=== PATIENT | female | born 1990 | race Caucasian/White ===

== ENCOUNTER 2021-12-10 14:00 | Outpatient (RCR) | payer MEDICAID, SELFPAY | END 2022-01-06 13:51 | disposition home or self-care (01) | LOC: HO.PT 14:00 | PROVIDERS: PCP Internal Medicine; Visit Provider Internal Medicine | DX: M54.16 Radiculopathy, lumbar region (principal) | CPT/HCPCS: 97110; 97112; 97161 ==

== ENCOUNTER 2022-01-13 14:58 | Outpatient (REF) | payer MEDICAID, SELFPAY ==
--- NOTE | ~2022-01-13 | MR_ITS ---
EXAMINATION: MR LUMBAR SPINE WITHOUT CONTRAST CLINICAL INFORMATION: 31-year-old with self-reported low back pain and right leg pain and numbness. Lumbar radiculopathy. COMPARISON: None TECHNIQUE: MRI of the lumbar spine was obtained using routine sequences without contrast. FINDINGS: CORONAL ALIGNMENT: Normal. SAGITTAL ALIGNMENT: Normal. LUMBOSACRAL JUNCTION: Normal. VERTEBRAL BODIES: Normal height. DISC SPACES AND ENDPLATES: [id number] disc space height loss at L5-S1 with disc desiccation, Schmorl's node along the inferior endplate of L5 and minor marginal endplate spurring. Remaining intervertebral disc space heights and signal are well maintained throughout the lumbar spine. SPINAL CANAL: No abnormal developmental findings. BONE MARROW: No significant marrow-replacing process or bone marrow edema. Type II degenerative marrow signal changes noted along the endplates at L5-S1. CONUS MEDULLARIS: Terminates at T12-L1. Morphology and signal is normal. INTRADURAL NERVE ROOTS: Within normal limits. L5-S1: Large broad-based central, slightly extruded disc herniation with minimal cephalad migration, with mass effect on the ventral thecal sac centrally and slightly to the right of midline with impingement on the traversing right S1 nerve root. There is associated moderate central spinal canal narrowing and [id number] right subarticular recess narrowing. No significant facet arthropathy. There is mild right-sided and [id number] left-sided neural foraminal stenosis without definite exiting neural impingement. The remaining lumbar intervertebral discs demonstrate normal disc contours without significant disc bulge or herniation. No significant facet arthrosis, canal or neural foraminal stenosis seen throughout the remainder of the lumbar spine. PARASPINAL/RETROPERITONEAL: The visualized paravertebral soft tissues appear unremarkable. MR/MR lumbar spine wo con IMPRESSION: 1. Discogenic degenerative changes at L5-S1 with a large central to right central extruded disc herniation, with impingement on the traversing right S1 nerve root and flattening of the ventral thecal sac asymmetric to the right with moderate central spinal canal narrowing and narrowing of the right subarticular zone. 2. Acjo-uj-xbjyyndg left and mild right-sided neural foraminal narrowing at L5-S1.
== END 2022-01-13 14:59 | disposition home or self-care (01) ==
LOC: HO.MRI 14:58
PROVIDERS: Visit Provider Internal Medicine
DX: M54.16 Radiculopathy, lumbar region (principal)
CPT/HCPCS: 72148

== ENCOUNTER 2022-01-31 15:57 | Emergency (ER) | payer MEDICAID, SELFPAY ==
[2022-01-31 16:20] VITALS: PULSE 106; RESP 18; TEMP 35.8; O2SAT 100; BMI 31.7
--- NOTE | 2022-01-31 22:29 | ED_ITS ---
HPI - General Adult General Chief complaint: Back Pain/Injury Stated complaint: abscess on face/R leg numbness Time Seen by Provider: 01/31/22 18:36 Source: patient Mode of arrival: ambulatory Limitations: no limitations History of Present Illness HPI narrative: 31-year-old female came in for evaluation of dental abscess and low back pain. 1. Dental abscess on the right upper gum, patient self opened the abscess and drained a on her own now is complaining of soreness of the right upper, no more discharge, no fever, no chills, no facial swelling, no eye pain or visual changes. 2. Patient also was diagnosed with lumbar radiculopathy with right lower extremities radiation, no urinary incontinence or stool incontinence, no loss of sensation or motor function to the lower extremities. Patient reported imp rovement with using short course of steroid in the past. Related Data Previous Rx's Medication Instructions Recorded clindamycin HCl 300 mg capsule 300 mg PO TID #20 caps 01/31/22 prednisone 20 mg tablet 20 mg PO BID #10 tabs 01/31/22 Allergies Allergy/AdvReac Type Severity Reaction Status Date / Time hydrocodone [From VICODIN] Allergy Severe INVOLUNTARY Verified 01/31/22 16:19 SPASMS aspirin Allergy Mild N/V Verified 01/31/22 16:19 Penicillins Allergy Mild HIVES Verified 01/31/22 16:19 citalopram [Celexa] Allergy Unknown Unknown Verified 01/31/22 16:19 penicillin V Allergy Unknown Unknown Verified 01/31/22 16:19 Penicillin Allergy Unknown Unknown Uncoded 01/31/22 16:19 Review of Systems Review of Systems: All other systems are reviewed and are negative Constitutional: Reports as per HPI and Reports no additional constitutional complaints Eyes: Reports as per HPI and Reports no additional eye complaints Reports system reviewed and no additional complaints, except as documented Cardiovascular: Reports as per HPI and Reports no additional cardiovascular complaints Respiratory: Reports as per HPI and Reports no additional respiratory complaints Gastrointestinal: Reports as per HPI and Reports no additional gastrointestinal complaints Genitourinary: Reports no additional female genitourinary complaints Musculoskeletal: Reports no additional musculoskeletal complaints Skin/Breast: Reports system reviewed and no additional complaints, except as docu Psychiatric: Reports no additional psychiatric complaints Endocrine: Reports no additional endocrine complaints Hematologic/Lymphatic: Reports no additional hematologic/lymphatic complaints Allergic/Immunologic: Reports no additional allergic/immunologic complaints Reports system reviewed and no additional complaints, except as documented and Reports Abnormal speech present [facility] Social History Social History (System 12/09/21 @ 11:50 by Leah Hendrix) Advance Directives: No Advance Directives Information Provided: Yes Physical Exam ED Vital Signs: Vital Signs - 24 hr 01/31/22 16:20 Temperature 96.5 F L Pulse Rate 106 H Respiratory Rate 18 Pulse Oximetry 100 Oxygen Delivery Method Room Air BMI result Body Mass Index 31.7 Vital signs have been reviewed as appeared to be correct. Blood pressure normal. Heart rate normal. Respiration rate normal. Temperature normal. O xygen saturation normal. Appearance: Alert. Oriented X3. No acute distress. Head: Normal external exam. Normocephalic. Atraumatic. No Sosa signs noted. No raccoon eyes noted Eyes: PERRLA. EOMI. Conjunctiva and sclera normal. Eyelids normal. ENT: TM's Normal. Pharynx normal. Uvula midline. Moist mucous membranes. No trismus noted. No drooling noted. No muffled voice noted. Neck: Normal inspection. Neck supple. FROM. No adenopathy. Thyroid Normal. No meningeal signs. No neck mass noted. CVS: Normal heart rate and rhythm. Heart sound normal. No murmurs noted. Pulses normal throughout. Respiratory: No respiratory distress. Painless inspiration. Breath sounds normal. No wheezes/rales/rhonchi noted. Chest nontender. No accessory muscle usage noted or decreased air movement noted. Abdomen: Soft and nontender. Bowel sounds normal in all 4 quadrants. No distention noted. No organomegaly noted. No visible injury noted. Back: No CVA tenderness. Full range of motion noted. Skin: Skin warm and dry. Normal skin color. Normal skin turgor. No rashes/lesions/lacerations noted. Extremities: No lower extremity edema. Extremities exhibit normal range of motion. Extremities nontender. Neuro: Oriented X 3. Cranial nerve exam: II-XII are grossly intact No motor deficit. No sensory deficit. Reflexes normal. Able to ambulate on both toes and heels, intact perianal sensation. Course Course Course Narrative: Assessment and plan. 31-year-old female with dental abscess that she self off vented this morning, no more drainage, improvement of the symptoms, patient is allergic to penicillins will start the patient on clindamycin and follow-up with the dentist. Patient with known lumbar radiculopathy patient reported improvement with using p.o. steroid prescribed by her PCP will start the patient on short course of prednisone. Discharge Plan Discharge Clinical Impression: Dental abscess, Lumbar radiculopathy, right Patient Disposition: Home, Self-Care Instructions: Dental Abscess (ED), Lumbar Radiculopathy (ED) Prescriptions: New clindamycin HCl 300 mg capsule 300 mg PO TID Qty: 20 0RF prednisone 20 mg tablet 20 mg PO BID Qty: 10 0RF Referrals: Amber Young MD [Primary Care Provider] - Stand Alone Forms: Work/School Release
[2022-01-31] MEDS: Clindamycin HCL 300 MG CAPSULE PO (22:48)
== END 2022-01-31 23:02 | disposition home or self-care (01) ==
PROVIDERS: Emergency Provider Emergency Medicine; PCP Internal Medicine
DX: K04.7 Periapical abscess without sinus (principal); M54.16 Radiculopathy, lumbar region; M54.50 Low back pain, unspecified
CPT/HCPCS: 99282; 99283

== ENCOUNTER 2022-03-10 15:58 | Outpatient (REF) | payer MEDICAID, SELFPAY ==
[2022-03-10 16:55] LABS: Estimated Average Glucose 321 mg/dL; Hemoglobin A1c % 12.8 %
[2022-03-10 17:21] LABS: Alanine Aminotransferase 37 U/L (0-31); Albumin Level 4.6 g/dL (3.5-5.0); Alkaline Phosphatase 82 U/L (39-117); Anion Gap 22 (12-20); Aspartate Amino Transferase 12 U/L (5-31); Bilirubin Total 0.6 mg/dL (0.0-1.0); Blood Urea Nitrogen 12 mg/dL (9-16); Calcium 10.5 mg/dL (8.4-10.2); Carbon Dioxide 23 mmol/L (22-29); Chloride 90 mmol/L (96-108); Estimated Glomerular Filt Rate 43; Potassium 4.5 mmol/L (3.3-5.1); Sodium 130 mmol/L (135-145); Total Protein 7.8 g/dL (6.5-8.0)
[2022-03-10 17:46] LABS: Glucose Random 799 mg/dL (60-115)
== END 2022-03-10 15:59 | disposition home or self-care (01) ==
LOC: HO.LAB 15:58
PROVIDERS: PCP Internal Medicine; Visit Provider Internal Medicine
DX: E11.65 Type 2 diabetes mellitus with hyperglycemia (principal); M51.16 Intervertebral disc disorders with radiculopathy, lumbar region
CPT/HCPCS: 36415; 80053; 83036

== ENCOUNTER 2022-03-10 19:25 | Emergency (ER) | payer MEDICAID, SELFPAY ==
[2022-03-10 20:27] VITALS: BP 138/78; PULSE 112; RESP 15; TEMP 36.1; O2SAT 97; BMI 31.8
[2022-03-10 20:45] LABS: MANUAL DIFF FLAG NO
[2022-03-10 20:47] LABS: Basophils Absolute Auto 0.1 X10*3/uL (0.0-0.2); Basophils Percent Auto 0.3 % (0-2); Hematocrit 40.8 % (37.0-47.0); Hemoglobin 13.7 g/dl (12.0-16.0); Imm Gran Abs Auto 0.44 X10*3/uL (0.00-0.03); Imm Gran Pct Auto 2.3 % (0.0-0.4); Lymphocytes Absolute Auto 2.4 X10*3/uL (1.2-4.9); Lymphocytes Percent Auto 12.3 % (20-40); Mean Corpuscular HGB Conc 33.6 g/dl (31.0-35.0); Mean Corpuscular Hemoglobin 27.4 pg (27.0-33.0); Mean Corpuscular Volume 81.6 fL (80.0-98.0); Mean Platelet Volume 11.4 fL (9.4-12.3); Monocytes Absolute Auto 1.4 X10*3/uL (0.1-1.2); Monocytes Percent Auto 7.1 % (2-11); Neutrophils Absolute Auto 15.1 x10*3/uL (2.0-8.3); Platelet Count 356 X10*3/uL (160-400); White Blood Count 19.3 X10*3/uL (4.8-10.8)
[2022-03-10 21:00] LABS: Appearance Urine CLEAR; Color Urine STRAW; Glucose Urine UA >=1000 MG/DL (NEG); Leukocyte Esterase Urine NEG (NEG); Nitrite Urine NEG (NEG); PH 5.5 (5.0-8.0); Specific Gravity - Urine <= 1.005 (1.005-1.025); UACC Culture Trigger NO; Urine Blood 1+ (NEG); Urine Ketones NEG (NEG); Urine Protein NEG (NEG-TRACE)
[2022-03-10 21:02] LABS: COVID-19 Test Negative (Negative)
[2022-03-10 21:05] LABS: Alanine Aminotransferase 38 U/L (0-31); Albumin Level 4.6 g/dL (3.5-5.0); Alkaline Phosphatase 80 U/L (39-117); Anion Gap 19 (12-20); Aspartate Amino Transferase 13 U/L (5-31); Bilirubin Total 0.4 mg/dL (0.0-1.0); Blood Urea Nitrogen 12 mg/dL (9-16); Calcium 9.8 mg/dL (8.4-10.2); Carbon Dioxide 25 mmol/L (22-29); Chloride 93 mmol/L (96-108); Estimated Glomerular Filt Rate 58; Glucose Random 521 mg/dL (60-115); Potassium 3.9 mmol/L (3.3-5.1); Sodium 133 mmol/L (135-145); Total Protein 7.8 g/dL (6.5-8.0)
--- NOTE | 2022-03-10 21:20 | PC.NURSE ---
Critical poc reported to this underwriter mortgage loan. Attempting to bring patient to room. Pt did not answer, Will attempt to call pt for a second time. Will notify provider.
[2022-03-10 21:23] LABS: Mucus Urine TRACE /LPF; Squamous Epithelial Cell Urine 1+ /LPF; WBC Urine 0-2 /HPF (0-4)
[2022-03-10 21:24] LABS: UPreg QC Valid YES; Urine Pregnancy NEGATIVE (NEGATIVE)
--- NOTE | 2022-03-10 21:25 | PC.NURSE ---
pt called multiple times with no reponse. pt was on the phone with her during triage and she understood that her labs were abnormal and that we need to get her Blood glucose under control. Left ER without alerting staff she would be leaving.
[2022-03-11 07:23] LABS: Estimated Average Glucose 315 mg/dL; Hemoglobin A1c % 12.6 %
[2022-03-11 07:25] LABS: Glucose, Whole Blood 484 mg/dL (60-115)
== END 2022-03-10 22:00 | disposition left against medical advice (07) ==
PROVIDERS: Emergency Medicine; Emergency Provider Emergency Medicine; PCP Internal Medicine
DX: E11.65 Type 2 diabetes mellitus with hyperglycemia (principal); M54.50 Low back pain, unspecified; Z20.822 Contact with and (suspected) exposure to COVID-19
CPT/HCPCS: 80053; 81001; 81003; 81025; 82947; 83036; 85025; 87635; 99282; 99283

== ENCOUNTER 2022-03-11 16:07 | Outpatient (REF) | payer MEDICAID, SELFPAY ==
[2022-03-11 16:56] LABS: Anion Gap 19 (12-20); Blood Urea Nitrogen 17 mg/dL (9-16); Calcium 9.6 mg/dL (8.4-10.2); Carbon Dioxide 27 mmol/L (22-29); Chloride 96 mmol/L (96-108); Estimated Glomerular Filt Rate > 60; Glucose Random 258 mg/dL (60-115); Potassium 3.7 mmol/L (3.3-5.1); Sodium 138 mmol/L (135-145)
== END 2022-03-11 16:08 | disposition home or self-care (01) ==
LOC: HO.LAB 16:07
PROVIDERS: PCP Internal Medicine; Visit Provider Internal Medicine
DX: E11.65 Type 2 diabetes mellitus with hyperglycemia (principal); N17.9 Acute kidney failure, unspecified
CPT/HCPCS: 36415; 80048

== ENCOUNTER 2022-03-13 02:20 | Observation (INO) | payer MEDICAID, SELFPAY ==
[2022-03-13] VITALS (15 sets, daily range): BP systolic 100–136; BP diastolic 52–80; PULSE 76–123; RESP 16–20; TEMP 36.1–37.3; O2SAT 94–99; BMI 31.8; BMI 31.7
--- NOTE | ~2022-03-13 | CT_ITS ---
EXAMINATION: CT ABDOMEN AND PELVIS WITHOUT CONTRAST CLINICAL INFORMATION: Right lower quadrant pain. COMPARISON: Abdominal ultrasound dated 09/12/2015. CT abdomen/pelvis dated 07/22/2011. TECHNIQUE: Multidetector volumetric imaging was performed from the superior aspect of the liver through the pubic symphysis. Sagittal and coronal reformatted images were obtained on the technologist's workstation. This CT examination was performed using dose optimization techniques as appropriate, variously including the following: *Automated exposure control *Adjustment of mA and/or kV according to patient size (this includes techniques or standardized protocols for targeted exams where dose is matched to indication/reason for exam; i.e. extremities or head) *Use of iterative reconstruction technique DLP: 707 mGy-cm FINDINGS: LUNG BASES: The visualized lung bases are unremarkable. LIVER, GALLBLADDER, AND BILIARY TREE: The liver is normal in size and shape. Parenchymal hypoattenuation consistent with steatosis. No focal hepatic lesion or biliary ductal dilatation is present. The gallbladder is unremarkable with no evidence of radiopaque gallstones, gallbladder wall thickening, or obvious pericholecystic inflammatory changes. PANCREAS: Unremarkable. SPLEEN: Unremarkable. ADRENAL GLANDS: Unremarkable. KIDNEYS AND URETERS: The kidneys are normal in size, shape, and attenuation. Right ureterovesicular junction stone measuring up to 0.8 x 0.6 cm and 1243 Hounsfield units. [id number]-[id number] right-sided hydroureteronephrosis with mild right perinephric stranding. No additional renal or ureteral stone. No left-sided hydronephrosis or hydroureter. BLADDER: Unremarkable. GASTROINTESTINAL TRACT: No bowel wall thickening or inflammatory change. No small or large bowel obstruction. Unremarkable appendix. PERITONEAL CAVITY: No intra-abdominal free air or free fluid. No intra-abdominal mass or organized fluid collection/abscess formation. ABDOMINAL WALL: No significant hernia is appreciated. LYMPH NODES: No significant lymphadenopathy. VASCULAR: Unremarkable. PELVIC VISCERA: The uterus and adnexa are unremarkable. OSSEOUS STRUCTURES: Unremarkable. CT/CT abdomen pelvis wo con IMPRESSION: 1. Obstructing right ureterovesicular junction stone measuring up to 0.8 cm with [id number]-[id number] right-sided hydroureteronephrosis and mild right perinephric stranding. 2. Hepatic steatosis. Fleischner guidelines were followed.
--- NOTE | ~2022-03-13 | FL_ITS ---
EXAMINATION: XR FLUOROSCOPY WITH IMAGES CLINICAL INFORMATION: Calculus COMPARISON: CT abdomen pelvis on 03/13/2022 TECHNIQUE: Fluoroscopy performed by Dr. Julius Maravilla. Fluoroscopy time: 0.2 minutes. Cumulative Dose: 5.51 mGy. Images: 2. FINDINGS: Cystoscopy was performed with retrograde access of the right ureter. A stent was placed. The proximal portion of the stent is not visualized. FL/FL guidance in OR IMPRESSION: Fluoroscopy provided for the urology department. Please see operative report for additional information.
[2022-03-13 02:53] LABS: Basophils Absolute Auto 0.1 X10*3/uL (0.0-0.2); Basophils Percent Auto 0.3 % (0-2); Eosinophils Absolute Auto 0.1 X10*3/uL (0.0-0.4); Eosinophils Percent Auto 0.5 % (0-4); Hematocrit 37.9 % (37.0-47.0); Hemoglobin 12.7 g/dl (12.0-16.0); Imm Gran Abs Auto 0.34 X10*3/uL (0.00-0.03); Imm Gran Pct Auto 2.2 % (0.0-0.4); Lymphocytes Absolute Auto 4.3 X10*3/uL (1.2-4.9); Lymphocytes Percent Auto 27.3 % (20-40); MANUAL DIFF FLAG SCAN; Mean Corpuscular HGB Conc 33.5 g/dl (31.0-35.0); Mean Corpuscular Hemoglobin 27.5 pg (27.0-33.0); Mean Corpuscular Volume 82.2 fL (80.0-98.0); Mean Platelet Volume 11.1 fL (9.4-12.3); Monocytes Absolute Auto 1.6 X10*3/uL (0.1-1.2); Monocytes Percent Auto 10.4 % (2-11); Neutrophils Absolute Auto 9.2 x10*3/uL (2.0-8.3); Neutrophils Percent Auto 59.3 % (45-73); Platelet Count 306 X10*3/uL (160-400); Red Blood Count 4.61 X10*6/uL (4.20-5.50); Red Cell Distribution Width 13.9 % (11.0-16.0); SCAN SMEAR FLAG 1; White Blood Count 15.6 X10*3/uL (4.8-10.8)
[2022-03-13 03:06] LABS: Anion Gap 14 (12-20); Blood Urea Nitrogen 13 mg/dL (9-16); Calcium 9.3 mg/dL (8.4-10.2); Carbon Dioxide 29 mmol/L (22-29); Chloride 101 mmol/L (96-108); Estimated Glomerular Filt Rate > 60; Glucose Random 152 mg/dL (60-115); Potassium 3.6 mmol/L (3.3-5.1); Sodium 140 mmol/L (135-145)
[2022-03-13 03:12] LABS: Appearance Urine HAZY; Color Urine YELLOW; Glucose Urine UA NEG (NEG); Leukocyte Esterase Urine NEG (NEG); Nitrite Urine NEG (NEG); Specific Gravity - Urine >= 1.030 (1.005-1.025); UACC Culture Trigger NO; UPreg QC Valid YES; Urine Blood 3+ (NEG); Urine Ketones NEG (NEG); Urine Pregnancy NEGATIVE (NEGATIVE); Urine Protein NEG (NEG-TRACE)
[2022-03-13 03:14] LABS: SLIDE REVIEW VERIFIED
[2022-03-13 03:18] LABS: Bacteria Urine 2+ /LPF; Mucus Urine 1+ /LPF; Squamous Epithelial Cell Urine 4+ /LPF
[2022-03-13 07:01] LABS: Alanine Aminotransferase 39 U/L (0-31); Albumin Level 3.9 g/dL (3.5-5.0); Alkaline Phosphatase 58 U/L (39-117); Aspartate Amino Transferase 25 U/L (5-31); Bilirubin Direct 0.2 mg/dL (0.0-0.5); Bilirubin Total 0.5 mg/dL (0.0-1.0); Lipase 43 U/L (8-78); Total Protein 6.4 g/dL (6.5-8.0)
--- NOTE | 2022-03-13 07:06 | ED_ITS ---
HPI - Abdominal Pain General Chief Complaint: Abdominal Pain Stated Complaint: abd pain, hard time walking, vomiting - diabetic Time Seen by Provider: 03/13/22 06:42 Source: patient Mode of arrival: ambulatory History of Present Illness HPI narrative: 31-year-old female with recently diagnosed diabetes and a history of kidney stones states that she began having right lower quadrant pain yesterday that was associated with nausea/vomiting/diarrhea at approximately 21:30. Patient also reports dysuria as well as subjective fevers and chills. Related Data Previous Rx's Medication Instructions Recorded prednisone 20 mg tablet 20 mg PO BID #10 tabs 01/31/22 Allergies Allergy/AdvReac Type Severity Reaction Status Date / Time hydrocodone [From VICODIN] Allergy Severe INVOLUNTARY Verified 01/31/22 16:19 SPASMS aspirin Allergy Mild N/V Verified 01/31/22 16:19 Penicillins Allergy Mild HIVES Verified 01/31/22 16:19 citalopram [Celexa] Allergy Unknown Unknown Verified 01/31/22 16:19 penicillin V Allergy Unknown Unknown Verified 01/31/22 16:19 Penicillin Allergy Unknown Unknown Uncoded 01/31/22 16:19 Review of Systems Review of Systems Pertinent positives and negatives as stated in HPI 10 point review of systems otherwise negative. PMFSH Past Medical History Source: nursing notes reviewed Social History Social History Advance Directives: No Advance Directives Information Provided: No Physical Exam ED Vital Signs: Vital Signs - 24 hr 03/13/22 02:35 03/13/22 04:42 03/13/22 08:15 Temperature 99.2 F 99.1 F Pulse Rate 123 H 122 H 114 H Respiratory Rate 16 18 17 Blood Pressure 115/78 127/73 120/67 Pulse Oximetry 98 95 97 Oxygen Delivery Method Room Air Room Air Room Air BMI result Body Mass Index 31.8 VITAL SIGNS: Reviewed. GENERAL: Well developed, well nourished, in no acute distress, resting in the gurney sleeping.. HEAD: Normocephalic/atraumatic EYES: PERRLA, EOMI EARS: Ext canals without abnormality OROPHARYNX: no oral lesions noted, posterior pharynx clear LUNGS: Normal breath sounds. No adventitious sounds or accessory muscle use. SpO2<98> CARDIOVASCULAR: Regular rate and rhythm without noted murmurs ABDOMEN: Soft, mild tenderness at the right flank/right lower quadrant without rebound, non-distended with bowel sounds. MUSCULOSKELETAL: No tenderness, deformities, or effusions noted on gross inspection. EXTREMITIES: No cyanosis, clubbing or edema. SKIN: Inspection of the skin reveals no rashes NEUROLOGIC: Alert and oriented x 4. Strength and sensation to light touch were grossly intact x 4. Course Course Course Narrative: 0633: 31-year-old female with history and clinical presentation of possible renal colic, appendicitis, UTI, ectopic. 0815: I suspect infection, and on review of all investigations there is a noted 0.8 cm stone at the right UVJ with right perinephric stranding and moderate to severe hydronephrosis. 0833: I discussed the case with Dr. Maravilla who will take patient to the OR this afternoon and he will see her at mid day. The plan and results were discussed with patient at bedside, lactic acid/blood cultures/antibiotics were ordered, patient was made NPO, IV fluids and pain medication were ordered. MDM - Abdominal Pain Lab Data Result diagrams: 03/13/22 02:46 03/13/22 02:46 Labs: Lab Results 03/13/22 03/13/22 03/13/22 Range/Units 02:46 02:46 02:57 WBC 15.6 H (4.8-10.8) X10*3/uL RBC 4.61 (4.20-5.50) X10*6/uL Hgb 12.7 (12.0-16.0) g/dl Hct 37.9 (37.0-47.0) % MCV 82.2 (80.0-98.0) fL MCH 27.5 (27.0-33.0) pg MCHC 33.5 (31.0-35.0) g/dl RDW 13.9 (11.0-16.0) % Plt Count 306 (160-400) X10*3/uL MPV 11.1 (9.4-12.3) fL Immature Gran % (Auto) 2.2 H (0.0-0.4) % Neut % (Auto) 59.3 (45-73) % Lymph % (Auto) 27.3 (20-40) % [place] % (Auto) 10.4 (2-11) % Eos % (Auto) 0.5 (0-4) % Baso % (Auto) 0.3 (0-2) % Lymph # (Auto) 4.3 (1.2-4.9) X10*3/uL [place] # (Auto) 1.6 H (0.1-1.2) X10*3/uL Eos # (Auto) 0.1 (0.0-0.4) X10*3/uL Baso # (Auto) 0.1 (0.0-0.2) X10*3/uL Abs Immat Gran (auto) 0.34 H (0.00-0.03) X10*3/uL Absolute Neuts (auto) 9.2 H (2.0-8.3) x10*3/uL Absolute Nucleated RBC 0.000 (0.0-0.012) X10*3/uL Nucleated RBC % (auto) 0.0 (0.0-0.2) /100WBC Smear Tech's Comments VERIFIED Sodium 140 (135-145) mmol/L Potassium 3.6 (3.3-5.1) mmol/L Chloride 101 (96-108) mmol/L Carbon Dioxide 29 (22-29) mmol/L Anion Gap 14 (12-20) BUN 13 (9-16) mg/dL Creatinine 0.81 (0.5-1.4) mg/dL Estim Creat Clear Calc 100.0 Estimated GFR > 60 Random Glucose 152 H (60-115) mg/dL Calcium 9.3 (8.4-10.2) mg/dL Total Bilirubin 0.5 (0.0-1.0) mg/dL Direct Bilirubin 0.2 (0.0-0.5) mg/dL AST 25 D (5-31) U/L ALT 39 H (0-31) U/L Alkaline Phosphatase 58 D (39-117) U/L Total Protein 6.4 L (6.5-8.0) g/dL Albumin 3.9 (3.5-5.0) g/dL Lipase 43 (8-78) U/L Urine Color YELLOW Urine Appearance HAZY Urine pH 6.0 (5.0-8.0) Ur Specific [place] >= 1.030 H (1.005-1.025) Urine Protein NEG (NEG-TRACE) MG/DL Urine Glucose (UA) NEG (NEG) MG/DL Urine Ketones NEG (NEG) MG/DL Urine Blood 3+ H (NEG) Urine Nitrite NEG (NEG) Ur Leukocyte Esterase NEG (NEG) Urine RBC 15-29 H (0) /HPF Urine WBC 1-4 (0-4) /HPF Ur Squamous Epith Cells 4+ /LPF Urine Bacteria 2+ /LPF Urine Mucus 1+ /LPF Urine Yeast 1+ /HPF Urine Test (NEGATIVE) 03/13/22 Range/Units 02:57 WBC (4.8-10.8) X10*3/uL RBC (4.20-5.50) X10*6/uL Hgb (12.0-16.0) g/dl Hct (37.0-47.0) % MCV (80.0-98.0) fL MCH (27.0-33.0) pg MCHC (31.0-35.0) g/dl RDW (11.0-16.0) % Plt Count (160-400) X10*3/uL MPV (9.4-12.3) fL Immature Gran % (Auto) (0.0-0.4) % Neut % (Auto) (45-73) % Lymph % (Auto) (20-40) % [place] % (Auto) (2-11) % Eos % (Auto) (0-4) % Baso % (Auto) (0-2) % Lymph # (Auto) (1.2-4.9) X10*3/uL [place] # (Auto) (0.1-1.2) X10*3/uL Eos # (Auto) (0.0-0.4) X10*3/uL Baso # (Auto) (0.0-0.2) X10*3/uL Abs Immat Gran (auto) (0.00-0.03) X10*3/uL Absolute Neuts (auto) (2.0-8.3) x10*3/uL Absolute Nucleated RBC (0.0-0.012) X10*3/uL Nucleated RBC % (auto) (0.0-0.2) /100WBC Smear Tech's Comments Sodium (135-145) mmol/L Potassium (3.3-5.1) mmol/L Chloride (96-108) mmol/L Carbon Dioxide (22-29) mmol/L Anion Gap (12-20) BUN (9-16) mg/dL Creatinine (0.5-1.4) mg/dL Estim Creat Clear Calc Estimated GFR Random Glucose (60-115) mg/dL Calcium (8.4-10.2) mg/dL Total Bilirubin (0.0-1.0) mg/dL Direct Bilirubin (0.0-0.5) mg/dL AST (5-31) U/L ALT (0-31) U/L Alkaline Phosphatase (39-117) U/L Total Protein (6.5-8.0) g/dL Albumin (3.5-5.0) g/dL Lipase (8-78) U/L Urine Color Urine Appearance Urine pH (5.0-8.0) Ur Specific [place] (1.005-1.025) Urine Protein (NEG-TRACE) MG/DL Urine Glucose (UA) (NEG) MG/DL Urine Ketones (NEG) MG/DL Urine Blood (NEG) Urine Nitrite (NEG) Ur Leukocyte Esterase (NEG) Urine RBC (0) /HPF Urine WBC (0-4) /HPF Ur Squamous Epith Cells /LPF Urine Bacteria /LPF Urine Mucus /LPF Urine Yeast /HPF Urine Test NEGATIVE (NEGATIVE) Discharge Plan Discharge Clinical Impression: Renal colic, Ureterolithiasis, Obstructed, uropathy Patient Disposition: Admitted As Inpatient Prescriptions: No Action prednisone 20 mg tablet 20 mg PO BID Qty: 10 0RF
[2022-03-13] MEDS: Ketorolac Tromethamine 30 MG/ML VIAL 15 MG IVPUSH (09:07)
[2022-03-13] MEDS: ondansetron HCL 4 MG/2 ML VIAL IVPUSH (09:07)
[2022-03-13] MEDS: 0.9 % Sodium Chloride 1,000 ML 999 ML IV (09:09)
--- NOTE | 2022-03-13 09:40 | PHA.MEDREC ---
Pharmacy Consult ? Medication Reconciliation Pharmacy has completed the medication reconciliation. Patient reports using Lantus 40 units at bedtime, however pharmacy claims the dose is 20 units at bedtime. Patient also has claims for picking up meds (calcium, citalopram, flexeril, discofenac, duloxetine) recently, however did not attest to taking them.
[2022-03-13 09:57] LABS: Lactic Acid 1.1 mmol/L (0.5-2.0)
[2022-03-13] MEDS: cefTRIAXone sodium 1 GM in 0.9 % Sodium Chloride 50 ML IV (10:34)
--- NOTE | 2022-03-13 10:36 | PC.NURSE ---
nad, resting w eyes closed. no n/v. flank pain relieved, still has chronic back pain, aware npo and of care plan
--- NOTE | 2022-03-13 14:14 | P.HPHOSP_ITS ---
History of Present Illness Date of Service: 03/13/22 Attending physician on admission: Mannie Rosario Chief Complaint: flank pain this is a 31-year-old female recently diagnosed with diabetes who presents to the emergency department with flank pain. She initially had polyuria and was seen by her primary care physician. Her blood sugar was elevated, hemoglobin A1c was above 12 and she was diagnosed with diabetes and started on Lantus. She began having right-sided flank pain and right-sided abdominal pain 2 days ago associated with dysuria. She denies any nausea, vomiting, fever, chills. Today her pain worsened and she presented to the emergency department for evaluation. Lab work was significant for leukocytosis of 15.6. She has remained afebrile. She underwent CT scan of the abdomen which showed an 8 mm obstructing stone on the right side. The emergency department provider discussed the case with Urology who recommended admission to the medical service. He plans to take her to the OR for intervention this afternoon. Review of Systems Review of Systems: Yes all other systems are reviewed and are negative Constitutional: Constitutional: Denies chills and Denies fever(s) Cardiovascular: Cardiovascular: Denies chest pain Gastrointestinal: Gastrointestinal: Reports abdominal pain, Denies nausea and Denies vomiting [facility] Medical History (Updated 03/13/22 @ 14:18 by RAIZA Dean) Diabetes Pertinent family history: no history of CAD, stroke, cancer as far she knows Surgical History (Updated 03/13/22 @ 14:18 by RAIZA Dean) H/O abdominoplasty H/O breast augmentation Social History (Updated 03/13/22 @ 14:19 by RAIZA Dean) Alcohol intake: current Alcohol intake frequency: holidays/special occasions only Patient Tobacco Use Status: Never used Tobacco Use of substances other than those prescribed or required for medical reasons: No Advance Directives: No Advance Directives Information Provided: No Meds Allergies Allergy/AdvReac Type Severity Reaction Status Date / Time hydrocodone [From VICODIN] Allergy Severe INVOLUNTARY Verified 01/31/22 16:19 SPASMS aspirin Allergy Mild N/V Verified 01/31/22 16:19 Penicillins Allergy Mild HIVES Verified 01/31/22 16:19 citalopram [Celexa] Allergy Unknown Unknown Verified 01/31/22 16:19 penicillin V Allergy Unknown Unknown Verified 01/31/22 16:19 Penicillin Allergy Unknown Unknown Uncoded 01/31/22 16:19 Active Medications: Current Medications Acetaminophen (Acetaminophen 325 Mg Tablet) 650 mg PO Q6H PRN PRN Reason: Pain, Mild (Pain Scale 1-3) Dextrose (Dextrose 50 % 25 Gm/50 Ml Syringe) 25 gm IVPUSH Q15M PRN; Protocol PRN Reason: per Hypoglycemia Standing Ord. Glucose (Glucose Gel 15 Gm Gel..Gram.) 15 gm PO Q15M PRN; Protocol PRN Reason: per Hypoglycemia Standing Ord. Ceftriaxone Sodium 1 gm/ (Sodium Chloride) 50 mls @ 100 mls/hr IV Q24H [facility] Insulin Glargine (Insulin Glargine,Hum.Rec.Anlog 100 Unit/Ml 10 Ml Vial) 40 unit SUBCUT BEDTIME [facility] Insulin Human Lispro (Insulin Lispro 100 Unit/Ml 3 Ml Vial) 0 unit SUBCUT QIDACHS [facility]; Protocol Ketorolac Tromethamine (Ketorolac Tromethamine 30 Mg/Ml Vial) 15 mg IVPUSH Q6H PRN PRN Reason: Pain, Mild (Pain Scale 1-3) Stop: 03/15/22 14:06 Omeprazole (Omeprazole 20 Mg Capsule.Dr) 20 mg PO DAILY@0630 [facility] Ondansetron HCl (Ondansetron Hcl 4 Mg/2 Ml Vial) 4 mg IVPUSH Q8H PRN PRN Reason: Nausea and Vomiting Pharmacy Consult (Consult Rx Perform Med Rec) 1 each MISCELLANE ONCE PRN PRN Reason: Consult order Sodium Chloride (0.9 % Sodium Chloride Flush 3 Ml Syringe) 3 ml IVFLUSH QSHIFT [facility] Trazodone HCl (Trazodone Hcl 50 Mg Tablet) 50 mg PO BEDTIME [facility] Home Medications Medication Instructions Recorded Confirmed Last Taken Type acetaminophen 325 mg tablet 650 mg PO Q6H PRN Pain 03/13/22 03/13/22 Unknown History (Tylenol) ibuprofen 400 mg tablet 400 mg PO Q6H PRN Pain 03/13/22 03/13/22 Unknown History insulin glargine 100 unit/mL (3 40 unit subcut BEDTIME 03/13/22 03/13/22 Unknown History mL) subcutaneous pen (Lantus Solostar U-100 Insulin) insulin lispro 100 unit/mL 10 unit subcut TID 03/13/22 03/13/22 03/12/22 History subcutaneous pen omeprazole 20 mg capsule,delayed 1 cap PO DAILY@0630 03/13/22 03/13/22 03/12/22 History release oxycodone 5 mg tablet 1 tab PO QID PRN pain 03/13/22 03/13/22 Unknown History trazodone 50 mg tablet 1 tab PO BEDTIME 03/13/22 03/13/22 Unknown History Physical Exam Vital Signs and Narrative: Vital Signs: Last Vital Signs Temp 98.7 F 03/13/22 11:28 Pulse 93 03/13/22 11:28 Resp 16 03/13/22 11:28 BP 101/64 03/13/22 11:28 Pulse Ox 95 03/13/22 11:28 O2 Del Method 03/13/22 11:28 BMI result Body Mass Index 31.8 Const: General: cooperative, comfortable, no acute distress, alert and awake Nutritional Appearance: overweight Orientation/consciousness: patient oriented x3 Resp: Effort & Inspection: normal respiratory effort and able to speak in complete sentences Auscultation: clear to auscultation bilaterally Cardio: Rate: regular rate Heart sounds: S1 normal heart sound present and S2 normal heart sound present GI: Inspection: No distended Palpation (GI): Soft to palpation and nontender : General: Yes no CVA tenderness Back/Spine/Pelvis: Back: no CVA tenderness Neuro: General: patient oriented x3 Extrem: General: Yes no pedal edema Results Labs CBC and Chem 7: 03/13/22 02:46 03/13/22 02:46 Labs: Laboratory Results - last 24 hr 03/13/22 03/13/22 03/13/22 02:46 02:46 02:57 MCV 82.2 MCH 27.5 MCHC 33.5 RDW 13.9 Plt Count 306 MPV 11.1 Immature Gran % (Auto) 2.2 H Neut % (Auto) 59.3 Lymph % (Auto) 27.3 [place] % (Auto) 10.4 Eos % (Auto) 0.5 Baso % (Auto) 0.3 Lymph # (Auto) 4.3 [place] # (Auto) 1.6 H Eos # (Auto) 0.1 Baso # (Auto) 0.1 Abs Immat Gran (auto) 0.34 H Absolute Neuts (auto) 9.2 H Absolute Nucleated RBC 0.000 Nucleated RBC % (auto) 0.0 Smear Tech's Comments VERIFIED Anion Gap 14 Estim Creat Clear Calc 100.0 Estimated GFR > 60 Random Glucose 152 H Lactic Acid Calcium 9.3 Total Bilirubin 0.5 Direct Bilirubin 0.2 AST 25 D ALT 39 H Alkaline Phosphatase 58 D Total Protein 6.4 L Albumin 3.9 Lipase 43 Urine Color YELLOW Urine Appearance HAZY Urine pH 6.0 Ur Specific [place] >= 1.030 H Urine Protein NEG Urine Glucose (UA) NEG Urine Ketones NEG Urine Blood 3+ H Urine Nitrite NEG Ur Leukocyte Esterase NEG Urine RBC 15-29 H Urine WBC 1-4 Ur Squamous Epith Cells 4+ Urine Bacteria 2+ Urine Mucus 1+ Urine Yeast 1+ Urine Test 03/13/22 03/13/22 02:57 09:37 MCV MCH MCHC RDW Plt Count MPV Immature Gran % (Auto) Neut % (Auto) Lymph % (Auto) [place] % (Auto) Eos % (Auto) Baso % (Auto) Lymph # (Auto) [place] # (Auto) Eos # (Auto) Baso # (Auto) Abs Immat Gran (auto) Absolute Neuts (auto) Absolute Nucleated RBC Nucleated RBC % (auto) Smear Tech's Comments Anion Gap Estim Creat Clear Calc Estimated GFR Random Glucose Lactic Acid 1.1 Calcium Total Bilirubin Direct Bilirubin AST ALT Alkaline Phosphatase Total Protein Albumin Lipase Urine Color Urine Appearance Urine pH Ur Specific [place] Urine Protein Urine Glucose (UA) Urine Ketones Urine Blood Urine Nitrite Ur Leukocyte Esterase Urine RBC Urine WBC Ur Squamous Epith Cells Urine Bacteria Urine Mucus Urine Yeast Urine Test NEGATIVE Imaging Radiologist's Impressions: Impressions Abdomen/Pelvis CT 03/13/22 07:39 IMPRESSION: 1. Obstructing right ureterovesicular junction stone measuring up to 0.8 cm with [id number] right-sided hydroureteronephrosis and mild right perinephric stranding. 2. Hepatic steatosis. Fleischner guidelines were followed. Assessment and Plan (1) Obstructed, uropathy: Status: Acute Plan this is a 31-year-old female, recently diagnosed with diabetes who presents the emergency department with right flank pain found to have right obstructing stone Obstructive uropathy with right-sided obstructing stone Seen by Urology, plan for OR this afternoon Started on IV ceftriaxone in the ED, will continue - pain control - follow-up urine culture recently diagnosed type 2 diabetes Hba1c >12 - SSI, POC -Continue home Lantus DVT prophylaxis-early ambulation, mechanical devices Code status -full code Attending-Dr. Rosario Quality Stroke Does the patient have a stroke diagnosis?: No VTE Prior VTE?: No VTE Risk Level:: Medical - moderate - high VTE Device Contraindication: N/A - Device Ordered VTE Drug Contraindication: Treatment Not Indicated
--- NOTE | 2022-03-13 16:05 | HO.ANESPROP2 ---
[facility] Active Problems Active Problems: All Active Problems (Updated 03/13/22 @ 14:18 by RAIZA Dean) Renal colic (Acute) Ureterolithiasis (Acute) Obstructed, uropathy (Acute) Past Medical History Medical History Diabetes Functional capacity: independent ambulation Patient : No Family History Family history of problems with anesthesia: No Surgical History Surgical History (Updated 03/13/22 @ 14:18 by RAIZA Dean) H/O abdominoplasty H/O breast augmentation History of Problems with Anesthesia: No Social History Social History Alcohol intake: current Alcohol intake frequency: holidays/special occasions only Patient Tobacco Use Status: Never used Tobacco Meds Allergies Allergy/AdvReac Type Severity Reaction Status Date / Time hydrocodone [From VICODIN] Allergy Severe INVOLUNTARY Verified 01/31/22 16:19 SPASMS aspirin Allergy Mild N/V Verified 01/31/22 16:19 Penicillins Allergy Mild HIVES Verified 01/31/22 16:19 citalopram [Celexa] Allergy Unknown Unknown Verified 01/31/22 16:19 penicillin V Allergy Unknown Unknown Verified 01/31/22 16:19 Penicillin Allergy Unknown Unknown Uncoded 01/31/22 16:19 Active Medications: Current Medications Acetaminophen (Acetaminophen 325 Mg Tablet) 650 mg PO Q6H PRN PRN Reason: Pain, Mild (Pain Scale 1-3) Dextrose (Dextrose 50 % 25 Gm/50 Ml Syringe) 25 gm IVPUSH Q15M PRN; Protocol PRN Reason: per Hypoglycemia Standing Ord. Glucose (Glucose Gel 15 Gm Gel..Gram.) 15 gm PO Q15M PRN; Protocol PRN Reason: per Hypoglycemia Standing Ord. Ceftriaxone Sodium 1 gm/ (Sodium Chloride) 50 mls @ 100 mls/hr IV Q24H [facility] Insulin Glargine (Insulin Glargine,Hum.Rec.Anlog 100 Unit/Ml 10 Ml Vial) 40 unit SUBCUT BEDTIME [facility] Insulin Human Lispro (Insulin Lispro 100 Unit/Ml 3 Ml Vial) 0 unit SUBCUT QIDACHS [facility]; Protocol Ketorolac Tromethamine (Ketorolac Tromethamine 30 Mg/Ml Vial) 15 mg IVPUSH Q6H PRN PRN Reason: Pain, Mild (Pain Scale 1-3) Stop: 03/15/22 14:06 Omeprazole (Omeprazole 20 Mg Capsule.Dr) 20 mg PO DAILY@0630 [facility] Ondansetron HCl (Ondansetron Hcl 4 Mg/2 Ml Vial) 4 mg IVPUSH Q8H PRN PRN Reason: Nausea and Vomiting Pharmacy Consult (Consult Rx Perform Med Rec) 1 each MISCELLANE ONCE PRN PRN Reason: Consult order Sodium Chloride (0.9 % Sodium Chloride Flush 3 Ml Syringe) 3 ml IVFLUSH QSHIFT [facility] Trazodone HCl (Trazodone Hcl 50 Mg Tablet) 50 mg PO BEDTIME [facility] Home Medications Medication Instructions Recorded Confirmed Last Taken Type acetaminophen 325 mg tablet 650 mg PO Q6H PRN Pain 03/13/22 03/13/22 Unknown History (Tylenol) ibuprofen 400 mg tablet 400 mg PO Q6H PRN Pain 03/13/22 03/13/22 Unknown History insulin glargine 100 unit/mL (3 40 unit subcut BEDTIME 03/13/22 03/13/22 Unknown History mL) subcutaneous pen (Lantus Solostar U-100 Insulin) insulin lispro 100 unit/mL 10 unit subcut TID 03/13/22 03/13/22 03/12/22 History subcutaneous pen omeprazole 20 mg capsule,delayed 1 cap PO DAILY@0630 03/13/22 03/13/22 03/12/22 History release oxycodone 5 mg tablet 1 tab PO QID PRN pain 03/13/22 03/13/22 Unknown History trazodone 50 mg tablet 1 tab PO BEDTIME 03/13/22 03/13/22 Unknown History Exam Exam Date and Time: March 13, 2022 1605 Height,Weight and Vital Signs: Height 5 ft 3 in Weight 81.647 kg Last Vital Signs Temp 98.7 F 03/13/22 11:28 Pulse 93 03/13/22 11:28 Resp 16 03/13/22 11:28 BP 101/64 03/13/22 11:28 Pulse Ox 95 03/13/22 11:28 O2 Del Method 03/13/22 11:28 Pertinent Lab Results Pertinent Lab Results: Laboratory Tests 03/13/22 03/13/22 03/13/22 02:46 02:46 02:57 WBC 15.6 H RBC 4.61 Hgb 12.7 Hct 37.9 MCV 82.2 MCH 27.5 MCHC 33.5 RDW 13.9 Plt Count 306 MPV 11.1 Immature Gran % (Auto) 2.2 H Neut % (Auto) 59.3 Lymph % (Auto) 27.3 [place] % (Auto) 10.4 Eos % (Auto) 0.5 Baso % (Auto) 0.3 Lymph # (Auto) 4.3 [place] # (Auto) 1.6 H Eos # (Auto) 0.1 Baso # (Auto) 0.1 Abs Immat Gran (auto) 0.34 H Absolute Neuts (auto) 9.2 H Absolute Nucleated RBC 0.000 Nucleated RBC % (auto) 0.0 Smear Tech's Comments VERIFIED Sodium 140 Potassium 3.6 Chloride 101 Carbon Dioxide 29 Anion Gap 14 BUN 13 Creatinine 0.81 Estim Creat Clear Calc 100.0 Estimated GFR > 60 Random Glucose 152 H Lactic Acid Calcium 9.3 Total Bilirubin 0.5 Direct Bilirubin 0.2 AST 25 D ALT 39 H Alkaline Phosphatase 58 D Total Protein 6.4 L Albumin 3.9 Lipase 43 Urine Color YELLOW Urine Appearance HAZY Urine pH 6.0 Ur Specific [place] >= 1.030 H Urine Protein NEG Urine Glucose (UA) NEG Urine Ketones NEG Urine Blood 3+ H Urine Nitrite NEG Ur Leukocyte Esterase NEG Urine RBC 15-29 H Urine WBC 1-4 Ur Squamous Epith Cells 4+ Urine Bacteria 2+ Urine Mucus 1+ Urine Yeast 1+ Urine Test 03/13/22 03/13/22 02:57 09:37 WBC RBC Hgb Hct MCV MCH MCHC RDW Plt Count MPV Immature Gran % (Auto) Neut % (Auto) Lymph % (Auto) [place] % (Auto) Eos % (Auto) Baso % (Auto) Lymph # (Auto) [place] # (Auto) Eos # (Auto) Baso # (Auto) Abs Immat Gran (auto) Absolute Neuts (auto) Absolute Nucleated RBC Nucleated RBC % (auto) Smear Tech's Comments Sodium Potassium Chloride Carbon Dioxide Anion Gap BUN Creatinine Estim Creat Clear Calc Estimated GFR Random Glucose Lactic Acid 1.1 Calcium Total Bilirubin Direct Bilirubin AST ALT Alkaline Phosphatase Total Protein Albumin Lipase Urine Color Urine Appearance Urine pH Ur Specific [place] Urine Protein Urine Glucose (UA) Urine Ketones Urine Blood Urine Nitrite Ur Leukocyte Esterase Urine RBC Urine WBC Ur Squamous Epith Cells Urine Bacteria Urine Mucus Urine Yeast Urine Test NEGATIVE Airway Mallampati Class: II TM Dist: >3cm Neck ROM: Full Heart: RRR Lungs: CTA Assessment and Plan Final Anesthetic Review Family History of Problems with Anesthesia: No History of Problems with Anesthesia: No ASA Class: II and Emergency Final Preanesthetic Review: Meds/Allgs Chart Reviewed, Consent Obtained/Reviewed and Anes Risks/Benef Reviewed Patient Risk: Low Procedure Risk: Low Anesthetic Plan Anesthetic Plan: GA Disposition: Standard PACU
[2022-03-13 16:10] LABS: Glucose, Whole Blood 109 mg/dL (60-115)
--- NOTE | 2022-03-13 16:15 | PM.UROCN ---
History of Present Illness Consult details Consult date: 03/13/22 Narrative: Consulting complaint right distal ureteric stone Jose F presents with 2 day history of right-sided flank pain So she aided nausea but no vomiting Recent diagnosis is diabetic with HbA1c 12.6 WBC today 15.6, creatinine 0.8 Sugars running in the 500s Has stabilized with IV pain control and hydration She has previously had stones and has required lithotripsy in the past 2012 and 2013 right ESWL Recommend intervention with cystoscopy, right retrograde, right ureteroscopy with laser lithotripsy and stent placement Review of Systems Constitutional: Constitutional: Reports as per HPI and Reports no additional constitutional complaints Cardiovascular: Cardiovascular: Reports as per HPI and Reports no additional cardiovascular complaints Respiratory: Respiratory: Reports as per HPI and Reports no additional respiratory complaints Gastrointestinal: Gastrointestinal: Reports as per HPI and Reports no additional gastrointestinal complaints Genitourinary: Genitourinary: Reports as per HPI Musculoskeletal: Musculoskeletal: Reports no additional musculoskeletal complaints and Reports as per HPI Neurologic: Reports system reviewed and no additional complaints, except as documented and Reports as per HPI PMFSH Past Medical History Medical History Diabetes Surgical History Surgical History (Updated 03/13/22 @ 14:18 by RAIZA Dean) H/O abdominoplasty H/O breast augmentation Social History Social History Alcohol intake: current Alcohol intake frequency: holidays/special occasions only Patient Tobacco Use Status: Never used Tobacco Meds Allergies Allergy/AdvReac Type Severity Reaction Status Date / Time hydrocodone [From VICODIN] Allergy Severe INVOLUNTARY Verified 01/31/22 16:19 SPASMS aspirin Allergy Mild N/V Verified 01/31/22 16:19 Penicillins Allergy Mild HIVES Verified 01/31/22 16:19 citalopram [Celexa] Allergy Unknown Unknown Verified 01/31/22 16:19 penicillin V Allergy Unknown Unknown Verified 01/31/22 16:19 Penicillin Allergy Unknown Unknown Uncoded 01/31/22 16:19 Active Medications: Current Medications Acetaminophen (Acetaminophen 325 Mg Tablet) 650 mg PO Q6H PRN PRN Reason: Pain, Mild (Pain Scale 1-3) Dextrose (Dextrose 50 % 25 Gm/50 Ml Syringe) 25 gm IVPUSH Q15M PRN; Protocol PRN Reason: per Hypoglycemia Standing Ord. Glucose (Glucose Gel 15 Gm Gel..Gram.) 15 gm PO Q15M PRN; Protocol PRN Reason: per Hypoglycemia Standing Ord. Ceftriaxone Sodium 1 gm/ (Sodium Chloride) 50 mls @ 100 mls/hr IV Q24H [facility] Insulin Glargine (Insulin Glargine,Hum.Rec.Anlog 100 Unit/Ml 10 Ml Vial) 40 unit SUBCUT BEDTIME [facility] Insulin Human Lispro (Insulin Lispro 100 Unit/Ml 3 Ml Vial) 0 unit SUBCUT QIDACHS [facility]; Protocol Ketorolac Tromethamine (Ketorolac Tromethamine 30 Mg/Ml Vial) 15 mg IVPUSH Q6H PRN PRN Reason: Pain, Mild (Pain Scale 1-3) Stop: 03/15/22 14:06 Omeprazole (Omeprazole 20 Mg Capsule.Dr) 20 mg PO DAILY@0630 [facility] Ondansetron HCl (Ondansetron Hcl 4 Mg/2 Ml Vial) 4 mg IVPUSH Q8H PRN PRN Reason: Nausea and Vomiting Pharmacy Consult (Consult Rx Perform Med Rec) 1 each MISCELLANE ONCE PRN PRN Reason: Consult order Sodium Chloride (0.9 % Sodium Chloride Flush 3 Ml Syringe) 3 ml IVFLUSH QSHIFT [facility] Trazodone HCl (Trazodone Hcl 50 Mg Tablet) 50 mg PO BEDTIME [facility] Home Medications Medication Instructions Recorded Confirmed Last Taken Type acetaminophen 325 mg tablet 650 mg PO Q6H PRN Pain 03/13/22 03/13/22 Unknown History (Tylenol) ibuprofen 400 mg tablet 400 mg PO Q6H PRN Pain 03/13/22 03/13/22 Unknown History insulin glargine 100 unit/mL (3 40 unit subcut BEDTIME 03/13/22 03/13/22 Unknown History mL) subcutaneous pen (Lantus Solostar U-100 Insulin) insulin lispro 100 unit/mL 10 unit subcut TID 03/13/22 03/13/22 03/12/22 History subcutaneous pen omeprazole 20 mg capsule,delayed 1 cap PO DAILY@0630 03/13/22 03/13/22 03/12/22 History release oxycodone 5 mg tablet 1 tab PO QID PRN pain 03/13/22 03/13/22 Unknown History trazodone 50 mg tablet 1 tab PO BEDTIME 03/13/22 03/13/22 Unknown History Physical Exam Vital Signs: Vital Signs: Last Vital Signs Temp 98.7 F 03/13/22 11:28 Pulse 93 03/13/22 11:28 Resp 16 03/13/22 11:28 BP 101/64 03/13/22 11:28 Pulse Ox 95 03/13/22 11:28 O2 Del Method 03/13/22 11:28 BMI result Body Mass Index 31.8 Const: General: cooperative, healthy appearing, comfortable and no acute distress Orientation/consciousness: patient oriented x3 HEENT: Face and sinus: Yes normal facial exam Mouth: moist mucous membranes Neck: Neck: Yes normal visual inspection, Yes full ROM and Yes trachea midline Chest: Chest palpation & inspection: normal inspection of the chest Resp: Effort & Inspection: normal respiratory effort, able to speak in complete sentences and no respiratory distress GI: Inspection: Yes normal to inspection Back/Spine/Pelvis: Cervical Spine: normal cervical lordosis Thoracic/Lumbar Spine: thoracic and lumbar spine normal to inspection Skin: General skin exam: no rashes or lesions noted Neuro: General: patient oriented x3, tone normal and moves all extremities Extrem: General: Yes normal to inspection and Yes capillary refill normal Results Labs Result diagrams: 03/13/22 02:46 03/13/22 02:46 Labs: Abnormal lab results 03/13/22 03/13/22 03/13/22 Range/Units 02:46 02:46 02:57 WBC 15.6 H (4.8-10.8) X10*3/uL Immature Gran % (Auto) 2.2 H (0.0-0.4) % [place] # (Auto) 1.6 H (0.1-1.2) X10*3/uL Abs Immat Gran (auto) 0.34 H (0.00-0.03) X10*3/uL Absolute Neuts (auto) 9.2 H (2.0-8.3) x10*3/uL Random Glucose 152 H (60-115) mg/dL ALT 39 H (0-31) U/L Total Protein 6.4 L (6.5-8.0) g/dL Ur Specific [place] >= 1.030 H (1.005-1.025) Urine Blood 3+ H (NEG) Urine RBC 15-29 H (0) /HPF Short CBC 03/13/22 Range/Units 02:46 WBC 15.6 H (4.8-10.8) X10*3/uL Hgb 12.7 (12.0-16.0) g/dl Hct 37.9 (37.0-47.0) % Plt Count 306 (160-400) X10*3/uL BMP 03/13/22 02:46 Sodium 140 Potassium 3.6 Chloride 101 Carbon Dioxide 29 BUN 13 Creatinine 0.81 Calcium 9.3 Liver Function 03/13/22 Range/Units 02:46 Total Bilirubin 0.5 (0.0-1.0) mg/dL Direct Bilirubin 0.2 (0.0-0.5) mg/dL AST 25 D (5-31) U/L ALT 39 H (0-31) U/L Alkaline Phosphatase 58 D (39-117) U/L Albumin 3.9 (3.5-5.0) g/dL Urine 03/13/22 03/13/22 Range/Units 02:57 02:57 Urine Color YELLOW Urine Appearance HAZY Urine pH 6.0 (5.0-8.0) Ur Specific [place] >= 1.030 H (1.005-1.025) Urine Protein NEG (NEG-TRACE) MG/DL Urine Glucose (UA) NEG (NEG) MG/DL Urine Test NEGATIVE (NEGATIVE) All other labs normal. Assessment and Plan (1) Renal colic: Status: Acute (2) Ureterolithiasis: Status: Acute Plan Ureteroscopy We discussed the nature of the decision and reasonable alternatives for performing the above surgery. Interventions include chemical dissolution, ESWL, ureteroscopy with laser lithotripsy and stent placement, PCNL. Options such as medical therapy were discussed. The relative uncertainties and benefits related to each alternate procedure were adequately discussed. General surgical risks including, but not limited to, pain, bleeding, infection, myocardial infarction, pulmonary embolus, deep vein thrombosis and cerebrovascular accident which may result in further hospitalization were discussed. Full disclosure of the procedure as well as all major risks, benefits and complications were discussed including but not limited to damage to the urethra, bladder and kidney infection, damage to the ureter, stent migration or malposition, scarring to the renal pelvis, remnant stone fragments, subsequent stone passage with need for secondary procedures. The overall secondary procedure rate is approximately 10-15%. The success rate of the procedure was discussed. Success of the procedure in the short-term does not necessarily guarantee that long-term success will be maintained. Suitable follow up will need to be maintained. The patient showed understanding of discussion and wishes to proceed with - cystoscopy, retrograde, ureteroscopy, possible lithotripsy/stone basketing and stent on the right side Procedures Date of Service Date of Service: 03/13/22
[2022-03-13] MEDS: Lactated Ringers 1,000 ML 100 ML IVCONT ×2 (16:59→19:59)
--- NOTE | 2022-03-13 17:40 | MHC.SHP ---
Pre-Procedural Eval Section A Date of Service: 03/13/22 The patient is an INPATIENT: Yes Changes since office visit: No Cold of Flu in the past 2 weeks, No New Medical Problems, No Changes in Medication and No Patient answered all questions The History & Physical has been completed within 30 days and I have reviewed it.: Yes Section B Chief Complaint: obstructive uropathy Allergies: Allergies Allergy/AdvReac Type Severity Reaction Status Date / Time hydrocodone [From VICODIN] Allergy Severe INVOLUNTARY Verified 01/31/22 16:19 SPASMS aspirin Allergy Mild N/V Verified 01/31/22 16:19 Penicillins Allergy Mild HIVES Verified 01/31/22 16:19 citalopram [Celexa] Allergy Unknown Unknown Verified 01/31/22 16:19 penicillin V Allergy Unknown Unknown Verified 01/31/22 16:19 Penicillin Allergy Unknown Unknown Uncoded 01/31/22 16:19 Plan Diagnosis/Plan: Unchanged (cystoscopy, right retrograde, ureteroscopy, laser, stent) I have reviewed the history and physical and performed a pertinent physical examination on my patient. No changes have occurred unless specified.
--- NOTE | 2022-03-13 17:41 | W.PM.OPN ---
Operative Note Operative Note Date of Service: 03/13/22 Narrative: PreOperative Diagnosis: Right distal ureteric stone Post Operative Diagnosis: right distal ureteric stone Procedure: - cystoscopy, right retrograde - right dilatation of ureteric orifice under fluoroscopy - right ureteroscopy, laser lithotripsy, stone basketing - right stent placement Surgeon: Dr Julius Maravilla Anesthesia: General Indications for procedure: right distal 8 mm stone with hydroureteronephrosis in setting of newly diagnosed diabetic Procedure: After informed consent was verified patient was brought to the operating placed in supine position. Anesthesia was administered per protocol. Patient was placed in modified dorsal lithotomy position and prepped and draped in a sterile fashion. Safety pause time-out and side of surgery confirmed. Antibiotics confirmed. A 22 Ethiopian cystoscope was inserted per urethra. Bladder was normal in its entirety. Both ureteric orifices were in normal position. The right ureteric orifice was cannulated and a retrograde examination was performed. filling defect distal tip right ureter . A Sensor guidewire was placed up to the level of the renal pelvis under fluoroscopy. The rigid cystoscope was removed. A [place] dilator was placed over the Sensor guidewire and used to dilate the ureteric orifice under fluoroscopy. The dilator was removed. The semi rigid ureteral scope was placed alongside the Sensor guidewire. stone was encountered. Using a holmium laser fiber 360 the stone was broken into small fragments. Using a basket these were removed will be sent for analysis. A 6 Ethiopian by 24 cm double-J stent was placed into the renal pelvis and bladder under a combination of fluoroscopy and direct visualization. The bladder was emptied. The patient tolerated the procedure well and was extubated in the operating room, and transferred in stable condition to the recovery area. Pathology: stones Drains: JJ stent
[2022-03-13 19:05] LABS: COVID-19 Test Negative (Negative); IDNOW Serial# 16C4AD1C
[2022-03-13 19:42] LABS: Glucose, Whole Blood 109 mg/dL (60-115)
[2022-03-13] MEDS: Phenazopyridine HCL 100 MG TABLET PO (19:59)
[2022-03-13] MEDS: Acetaminophen 325 MG TABLET 650 MG PO (19:59)
[2022-03-13] MEDS: 0.9 % Sodium Chloride Flush 3 ML SYRINGE IVFLUSH (20:00)
[2022-03-13 20:35] LABS: Glucose, Whole Blood 176 mg/dL (60-115)
[2022-03-13] MEDS: Insulin Glargine,Hum.rec.anlog 100 UNIT/ML 10 ML VIAL 40 UNIT SUBCUT (21:33)
[2022-03-13] MEDS: traZODone HCL 50 MG TABLET PO (21:33)
[2022-03-13] MEDS: Insulin Lispro 100 UNIT/ML 3 ML VIAL SUBCUT (21:33)
[2022-03-14 03:23] VITALS: BP 122/59; PULSE 88; RESP 17; TEMP 36.5; O2SAT 100
[2022-03-14] MEDS: Lactated Ringers 1,000 ML 100 ML IVCONT (05:54)
[2022-03-14] MEDS: traMADoL HCL 50 MG TABLET PO (05:54)
[2022-03-14] MEDS: Omeprazole 20 MG CAPSULE.DR PO (05:54)
[2022-03-14 06:48] VITALS: BP 102/64; PULSE 84; RESP 18; TEMP 36.6; O2SAT 98
[2022-03-14 07:06] LABS: Glucose, Whole Blood 157 mg/dL (60-115)
[2022-03-14] MEDS: Insulin Lispro 100 UNIT/ML 3 ML VIAL SUBCUT (08:27)
[2022-03-14] MEDS: cefTRIAXone sodium 1 GM in 0.9 % Sodium Chloride 50 ML IV (08:27)
[2022-03-14] MEDS: 0.9 % Sodium Chloride Flush 3 ML SYRINGE IVFLUSH (08:27)
--- NOTE | 2022-03-14 08:42 | MHC.CM.PN ---
CM met with Patient at bedside and addressed GOEL with her, providing her with the original and placing a copy on the chart. Patient lives in a Townhouse with her and 3 children ages 5,11,14 years of age. Home no services is the goal and CM has initiated and will follow for dc planning. Patient's PCP is Dr. Young and Patient has received NO Covid vax.
[2022-03-14 09:11] LABS: Hematocrit 36.9 % (37.0-47.0); Hemoglobin 11.9 g/dl (12.0-16.0); Mean Corpuscular HGB Conc 32.2 g/dl (31.0-35.0); Mean Corpuscular Hemoglobin 27.3 pg (27.0-33.0); Mean Corpuscular Volume 84.6 fL (80.0-98.0); Mean Platelet Volume 10.9 fL (9.4-12.3); Platelet Count 273 X10*3/uL (160-400); Red Blood Count 4.36 X10*6/uL (4.20-5.50); Red Cell Distribution Width 14.2 % (11.0-16.0); White Blood Count 8.9 X10*3/uL (4.8-10.8)
[2022-03-14 09:39] LABS: Anion Gap 11 (12-20); Carbon Dioxide 28 mmol/L (22-29); Chloride 105 mmol/L (96-108); Creatinine Clr Calc Pharmacy 122.3; Estimated Glomerular Filt Rate > 60; Glucose Random 147 mg/dL (60-115); Potassium 3.8 mmol/L (3.3-5.1); Sodium 140 mmol/L (135-145)
[2022-03-14 09:51] LABS: Blood Urea Nitrogen 6 mg/dL (9-16); Calcium 8.7 mg/dL (8.4-10.2)
--- NOTE | 2022-03-14 10:15 | PM.DS ---
DS: Providers Provider Date of Service: 03/14/22 Date of admission: 03/13/22 17:45 Date of discharge: 03/14/22 Primary care physician: Amber Young MD Consults: 03/13/22 08:55 Consult to Urology Stat Consulting Provider: Julius Maravilla Reason for consultation: ureterolithiasis, obstructing Attending physician on discharge: Ben Clifford Discharging clinician: Jina Lopez DS: Diagnosis Discharge Diagnosis (1) Renal colic: Status: Acute (2) Ureterolithiasis: Status: Acute DS: Summary Hospital Course Hospital Course: from H&P on day of admission this is a 31-year-old female recently diagnosed with diabetes who presents to the emergency department with flank pain.? She initially had polyuria and was seen by her primary care physician.? Her blood sugar was elevated, hemoglobin A1c was above 12 and she was diagnosed with diabetes and started on Lantus.? She began having right-sided flank pain and right-sided abdominal pain 2 days ago associated with dysuria.? She denies any nausea, vomiting, fever, chills.? Today her pain worsened and she presented to the emergency department for evaluation.? Lab work was significant for leukocytosis of 15.6.? She has remained afebrile.? She underwent CT scan of the abdomen which showed an 8 mm obstructing stone on the right side.? The emergency department provider discussed the case with Urology who recommended admission to the medical service.? He plans to take her to the OR for intervention this afternoon. obstructive uropathy/right distal ureteric stone Patient was admitted to the hospital and started on IV ceftriaxone. She underwent cystoscopy,? right retrograde, right dilatation of ureteric orifice under fluoroscopy, right ureteroscopy, laser lithotripsy, stone basketing, right stent placement. she has remained afebrile, leukocytosis resolved. Her abdominal pain and flank pain have resolved. she will be discharged home to complete 14 day course of antibiotics. She should follow-up with Dr. Maravilla in the office for stent removal in the next 1 week or so. Urine culture is pending at the time of discharge. Time Spent with Patient Time attestation: Total time spent providing and/or coordinating discharge services: Discharge coordination time: Greater than 30 minutes Quality: Safe Use of Opioids Does Pt have an Active Cancer Diagnosis on the Problem List?: No Quality: Stroke Does the patient have a stroke diagnosis?: No Physical Exam Vital Signs: Vital Signs: Last Vital Signs Temp 97.8 F 03/14/22 06:48 Pulse 84 03/14/22 06:48 Resp 18 03/14/22 06:48 BP 102/64 03/14/22 06:48 Pulse Ox 98 03/14/22 06:48 O2 Del Method 03/14/22 06:48 O2 Flow Rate 1 03/13/22 18:33 BMI result Body Mass Index 31.7 Const: General: cooperative, comfortable, no acute distress, alert and awake Nutritional Appearance: overweight Orientation/consciousness: patient oriented x3 Resp: Effort & Inspection: normal respiratory effort and able to speak in complete sentences Auscultation: clear to auscultation bilaterally Cardio: Rate: regular rate Heart sounds: S1 normal heart sound present and S2 normal heart sound present GI: Inspection: No distended Palpation (GI): Soft to palpation and nontender Neuro: General: patient oriented x3 Extrem: General: Yes no pedal edema DS: Data Data Completed and Pending Pending studies at discharge: Pending at discharge 03/13/22 17:40 Surgical [PTH] Routine Labs on day of discharge: Laboratory Results - last 24 hr 03/13/22 03/13/22 03/13/22 16:06 18:38 19:34 WBC RBC Hgb Hct MCV MCH MCHC RDW Plt Count MPV Absolute Nucleated RBC Nucleated RBC % (auto) Sodium Potassium Chloride Carbon Dioxide Anion Gap BUN Creatinine Estim Creat Clear Calc Estimated GFR POC Glucose 109 109 Random Glucose Calcium COVID-19 (ALICIA) Negative COVID-19 Clin Com See Note 03/13/22 03/14/22 03/14/22 20:27 06:47 09:00 WBC 8.9 RBC 4.36 Hgb 11.9 L Hct 36.9 L MCV 84.6 MCH 27.3 MCHC 32.2 RDW 14.2 Plt Count 273 MPV 10.9 Absolute Nucleated RBC 0.000 Nucleated RBC % (auto) 0.0 Sodium Potassium Chloride Carbon Dioxide Anion Gap BUN Creatinine Estim Creat Clear Calc Estimated GFR POC Glucose 176 H 157 H Random Glucose Calcium COVID-19 (ALICIA) COVID-19 Clin Com 03/14/22 09:00 WBC RBC Hgb Hct MCV MCH MCHC RDW Plt Count MPV Absolute Nucleated RBC Nucleated RBC % (auto) Sodium 140 Potassium 3.8 Chloride 105 Carbon Dioxide 28 Anion Gap 11 L BUN 6 L D Creatinine 0.66 Estim Creat Clear Calc 122.3 Estimated GFR > 60 POC Glucose Random Glucose 147 H Calcium 8.7 D COVID-19 (ALICIA) COVID-19 Clin Com Discharge Plan Discharge Patient Disposition: Home, Self-Care Discharge Diagnosis: Obstructive uropathy right renal stone Referrals: Amber Young MD [Primary Care Provider] - 1 Week Julius Maravilla MD [Physician] - 1 Week Discharge Medications: New cefuroxime axetil 250 mg tablet 250 mg PO BID 13 Days Qty: 26 0RF Continued trazodone 50 mg tablet 1 tab PO BEDTIME omeprazole 20 mg capsule,delayed release(DR/EC) 1 cap PO DAILY@0630 acetaminophen [Tylenol] 325 mg Tablet 650 mg PO Q6H PRN (Reason: Pain) ibuprofen 400 mg Tablet 400 mg PO Q6H PRN (Reason: Pain) oxycodone 5 mg tablet 1 tab PO QID PRN (Reason: pain) insulin lispro 100 unit/mL Insulin Pen 10 unit SUBCUT TID Rx Instructions: before meals insulin glargine [Lantus Solostar U-100 Insulin] 100 unit/mL (3 mL) Insulin Pen 40 unit SUBCUT BEDTIME Discharge Orders: Discharge Order (Routine); Ordered 03/14/22 Ordered By: Jina Lopez Activity on Discharge: As tolerated Stand Alone Forms: Patient Portal Discharge page Care Plan Goals: see below Health Concerns: right obstructing kidney stone - you had cystoscopy, laser lithotripsy and right stent placement with Dr. Maravilla diabetes Plan of Treatment: call to schedule follow-up appointment with Urology, right-sided stent will be removed in office in approximately 1 week complete entire course of antibiotics as prescribed Assessment: see discharge summary
--- NOTE | 2022-03-14 10:20 | MHC.CM.PN ---
Patient has been medically cleared for dc to home today, self care.
[2022-03-14] MEDS: Acetaminophen 325 MG TABLET 650 MG PO (11:01)
--- NOTE | 2022-03-15 14:29 | HO.POSTANES ---
Post Anesthesia Evaluation Post Anesthesia Evaluation Anesthesia: General LMA Mental Status: Awake Pain Control: Satisfactory Nausea/Vomiting: None Hydration: Adequate Anesthesia-Related Issues: No Anes. Related Issues
[2022-03-19 05:12] LABS: Stone Source URETERAL STONE
== END 2022-03-14 11:46 | disposition home or self-care (01) ==
LOC: HO.ED 13:34 → HO.SSS 18:01 → HO.S3 18:03
PROVIDERS: Physician Assistant Medical; Admitting Provider Urology; Emergency Provider Student in an Organized Health Care Education/Training Program; PCP Internal Medicine; Visit Provider Urology
PROC: (CPT 52356; principal; 2022-03-13 16:30)
DX: N13.2 Hydronephrosis with renal and ureteral calculous obstruction (principal); E11.9 Type 2 diabetes mellitus without complications; Z87.891 Personal history of nicotine dependence; Z79.4 Long term (current) use of insulin; Z79.899 Other long term (current) drug therapy
CPT/HCPCS: 52356; 36415; 74176; 80048; 80076; 81001; 81025; 82365; 82947; 83605; 83690; 85025; 85027; 87040; 87086; 87635; 88300; 96361; 96365; 96366; 96375; 99284; 99285; C1758; C1769; C2617; J0131; J0696; J1100; J1885; J2250; J2405; J3010; Q9967

== ENCOUNTER → 2022-03-27 14:47 | Outpatient (BNVA) | payer MEDICAID, SELFPAY | PROVIDERS: PCP Internal Medicine; Visit Provider Urology | DX: N20.1 Calculus of ureter (principal); N20.0 Calculus of kidney | CPT/HCPCS: 52310; 99212 ==

== ENCOUNTER 2022-06-03 15:25 | Outpatient (REF) | payer MEDICAID, SELFPAY ==
--- NOTE | ~2022-06-03 | US_ITS ---
EXAMINATION: US RETROPERITONEAL LIMITED (RENAL ONLY) CLINICAL INFORMATION: Calculus of kidney. COMPARISON: CT abdomen and pelvis without contrast 03/13/2022. Ultrasound abdomen complete 09/12/2015. X-ray abdomen KUB 11/15/2013. Ultrasound retroperitoneal complete (renal) 09/07/2013. X-ray abdomen KUB 01/04/2013. TECHNIQUE: Real-time imaging of the kidneys. FINDINGS: RIGHT KIDNEY: 11.3 x 4.0 x 5.0 cm (SAG x AP x TRV). The kidney is normal in size, contour, and echogenicity. Renal cortical thickness is normal. No calculi or focal parenchymal lesions. No hydronephrosis. LEFT KIDNEY: 9.2 x 4.6 x 5.6 cm (SAG x AP x TRV). The kidney is normal in size, contour, and echogenicity. Renal cortical thickness is normal. No calculi or focal parenchymal lesions. No hydronephrosis. Liver is echogenic suggestive of fatty infiltration. US/US renal BI IMPRESSION: Normal renal ultrasound.
== END 2022-06-03 15:26 | disposition home or self-care (01) ==
LOC: HO.HMGCX 15:25
PROVIDERS: PCP Internal Medicine; Visit Provider Urology
DX: N20.0 Calculus of kidney (principal)
CPT/HCPCS: 76775

== ENCOUNTER 2022-09-07 10:00 | Outpatient (RCR) | payer MEDICAID, SELFPAY | END 2022-09-07 12:32 | disposition home or self-care (01) | LOC: HO.PT 10:00 | PROVIDERS: PCP Internal Medicine; Visit Provider Physician Assistant | DX: M54.9 Dorsalgia, unspecified (principal) | CPT/HCPCS: 97110; 97162 ==

== ENCOUNTER 2023-02-01 11:00 | Outpatient (RCR) | payer MEDICAID, SELFPAY ==
--- NOTE | 2023-01-06 16:19 | MHC.PT.EP ---
[facility] [place] Office [place] Office [place] Office [address] John Bowen [address] [phone] F: [phone] F: [phone] F: [phone] F: [phone] Physical Therapy Plan of Care Date of Evaluation: Date of Surgery: 04/28/22 Diagnosis: dorsalgia (RL) Assessment: pt is a 32 y/o female presenting to physical therapy w/ referring diagnosis of M54.9 dorsalgia. Impairments include pain, decreased range of motion, decreased strength, impaired functional mobility, impaired postural awareness, and altered ambulation mechanics. pt is a good candidate for skilled PT due to age, potential remediation of impairments, typical disease/condition progression and prognosis, comorbidities, and motivation. pt would benefit from skilled PT intervention to provide a tailored strengthening and stretching exercise program, functional training, gait training, postural re-training, neuromuscular re-education, modalities as needed for pain, equipment safety demonstration. Frequency and Duration: The patient will be seen 2x/wk for 3 wks Short Term Goals: pt will be I w/ HEP to promote self-management of condition. pt will demo proper sitting posture w/ lumbar roll to promote neutral spine w/ seated ADLs. Dsp Engineer Goals: pt will report a statistically significant improvement in self-reported outcome measure, Hardik, to promote return to PLOF. pt will improve lumbar flexion to at least 75% to promote ease in lower body dressing. Treatment Plan: Modalities to reduce pain, spasms and effusion. Manual therapy to restore motion and function. Therapeutic exercise to improve strength and flexibility. Neuromuscular re-education for posture and balance. Therapeutic activities to return to functional activities of daily living. Electronically signed by: Maite Hemphill PT, DPT Please sign and return to therapist. Thank you for your referral.
--- NOTE | 2023-03-01 10:18 | MHC.PT.DC ---
[facility] [place] Office [place] Office [place] Office [address] John Bowen [address] [phone] F: [phone] F: [phone] F: [phone] F: [phone] Physical Therapy Discharge Report Diagnosis: dorsalgia (RL) Date of Surgery: 04/28/22 Date of Evaluation: 01/06/23 Date of Discharge: 03/01/23 Treatments to Date: 4 Cancellations to Date: 4 No Shows to Date: 3 Discharge Status: Recommend MD Follow-up Visit Non-compliance Discharge Summary: The patient has been non-compliant regarding her attendance here in physical therapy as well as to her prescribed home exercise program and posture recommendations. She is being discharged due to non-compliance. A new referral should not be placed to physical therapy again until she is sure she can commit to coming multiple times a week and to a home exercise regimen. Electronically signed by: Maite Hemphill PT, DPT Please sign and return to therapist. Thank you for your referral.
== END 2023-03-01 10:18 | disposition home or self-care (01) ==
LOC: HO.PT 11:00
PROVIDERS: PCP Internal Medicine; Visit Provider Internal Medicine
DX: M54.9 Dorsalgia, unspecified (principal)
CPT/HCPCS: 97110; 97112; 97140; 97162

== ENCOUNTER 2023-06-25 13:51 | Outpatient (REF) | payer MEDICAID, SELFPAY ==
--- NOTE | ~2023-06-25 | US_ITS ---
EXAMINATION: US RETROPERITONEAL LIMITED (RENAL ONLY) CLINICAL INFORMATION: Occlusive ureter. COMPARISON: Bilateral renal ultrasound dated 06/03/2022. CT abdomen and pelvis without contrast dated 03/13/2022. Ultrasound abdomen complete dated 09/12/2015. KUB dated 11/15/2013 and 01/04/2013. TECHNIQUE: Real-time imaging of the kidneys. Limited visualization due to bowel gas. FINDINGS: RIGHT KIDNEY: 11.3 x 3.9 x 5.3 cm (SAG x AP x TRV). No hydronephrosis. No renal calculi. Renal cortical thickness is normal. Limited visualization. LEFT KIDNEY: 10.8 x 4.5 x 6.0 cm (SAG x AP x TRV). No hydronephrosis. No renal calculi. Renal cortical thickness is normal. Limited visualization. Incidental note on limited views of the liver of diffusely increased hepatic parenchymal heterogeneity and echogenicity which could be associated with hepatic steatosis or hepatocellular disease and substantially limits visualization. US/US renal BI IMPRESSION: No hydronephrosis. No renal calculi.
== END 2023-06-25 13:52 | disposition home or self-care (01) ==
LOC: HO.US 13:51
PROVIDERS: PCP Internal Medicine; Visit Provider Urology
DX: N20.1 Calculus of ureter (principal)
CPT/HCPCS: 76775

== ENCOUNTER 2023-08-19 10:42 | Outpatient (REF) | payer MEDICAID, SELFPAY ==
[2023-08-19 13:22] LABS: MANUAL DIFF FLAG NO
[2023-08-19 13:37] LABS: Basophils Percent Auto 0.4 % (0-2); Eosinophils Absolute Auto 0.1 X10*3/uL (0.0-0.4); Eosinophils Percent Auto 0.6 % (0-4); Hematocrit 41.6 % (37.0-47.0); Hemoglobin 13.3 g/dl (12.0-16.0); Imm Gran Abs Auto 0.02 X10*3/uL (0.00-0.03); Imm Gran Pct Auto 0.2 % (0.0-0.4); Lymphocytes Absolute Auto 3.3 X10*3/uL (1.2-4.9); Lymphocytes Percent Auto 33.2 % (20-40); Mean Corpuscular Hemoglobin 26.8 pg (27.0-33.0); Mean Corpuscular Volume 83.9 fL (80.0-98.0); Mean Platelet Volume 12.1 fL (9.4-12.3); Monocytes Absolute Auto 0.8 X10*3/uL (0.1-1.2); Monocytes Percent Auto 7.7 % (2-11); Neutrophils Absolute Auto 5.7 x10*3/uL (2.0-8.3); Neutrophils Percent Auto 57.9 % (45-73); Platelet Count 286 X10*3/uL (160-400); Red Blood Count 4.96 X10*6/uL (4.20-5.50); White Blood Count 9.8 X10*3/uL (4.8-10.8)
[2023-08-19 13:53] LABS: Estimated Average Glucose 105 mg/dL; Hemoglobin A1C 122.7076 umol/L; Hemoglobin A1c % 5.3 % (<6.0)
[2023-08-19 13:54] LABS: Alanine Aminotransferase 15 U/L (0-31); Albumin Level 4.2 g/dL (3.5-5.0); Alkaline Phosphatase 59 U/L (39-117); Anion Gap 11 (12-20); Aspartate Amino Transferase 17 U/L (5-31); Bilirubin Total 0.3 mg/dL (0.0-1.0); Blood Urea Nitrogen 8 mg/dL (9-16); Calcium 9.6 mg/dL (8.4-10.2); Carbon Dioxide 28 mmol/L (22-29); Chloride 105 mmol/L (96-108); Cholesterol 131 mg/dL (<200); Estimated Glomerular Filt Rate > 60; Glucose Random 96 mg/dL (60-115); HDL Cholesterol 41 mg/dL (>40); LDL Cholesterol Calculated 78 mg/dL (<100); Potassium 4.1 mmol/L (3.3-5.1); Sodium 140 mmol/L (135-145); Total Protein 7.9 g/dL (6.5-8.0); Triglycerides 62 mg/dL (<150)
[2023-08-19 14:07] LABS: Creatinine Urine 231.45 mg/dL
[2023-08-19 14:10] LABS: Thyroid Stimulating Hormone 1.21 uIU/mL (0.32-4.0)
== END 2023-08-19 10:43 | disposition home or self-care (01) ==
LOC: HO.10HDL 10:42
PROVIDERS: Visit Provider Internal Medicine
DX: E11.9 Type 2 diabetes mellitus without complications (principal); F32.9 Major depressive disorder, single episode, unspecified; F40.01 Agoraphobia with panic disorder; Z63.4 Disappearance and death of family member
CPT/HCPCS: 36415; 80053; 80061; 82043; 82570; 83036; 84443; 85025

== ENCOUNTER 2023-11-03 10:32 | Outpatient (REF) | payer MEDICAID, SELFPAY ==
[2023-11-03 14:24] LABS: Thyroid Stimulating Hormone 2.25 uIU/mL (0.32-4.0)
== END 2023-11-03 10:33 | disposition home or self-care (01) ==
LOC: HO.10HDL 10:32
PROVIDERS: Visit Provider Internal Medicine
DX: N91.1 Secondary amenorrhea (principal); Z32.02 Encounter for pregnancy test, result negative
CPT/HCPCS: 36415; 83001; 84443

== ENCOUNTER 2024-04-04 12:02 | Outpatient (REF) | payer MEDICAID, SELFPAY ==
[2024-04-05 04:42] LABS: HBS Num1 25.16 mIU/mL (0-7.99); ~Hepatitis B Surface Antibody REACTIVE (Nonreactive)
[2024-04-05 12:18] LABS: Rubella IgG Antibody 2.26 Index
[2024-04-07 13:23] LABS: TS Negative Control Passed; TS Panel A 0; TS Panel B 0; TS Positive Control Passed; TSpotTB Negative (Negative)
== END 2024-04-04 12:03 | disposition home or self-care (01) ==
LOC: HO.10HDL 12:02
PROVIDERS: Visit Provider Internal Medicine
DX: M54.50 Low back pain, unspecified (principal); Z11.1 Encounter for screening for respiratory tuberculosis; Z11.59 Encounter for screening for other viral diseases
CPT/HCPCS: 36415; 86481; 86706; 86735; 86762; 86765; 86787

== ENCOUNTER → 2024-08-08 09:51 | Outpatient (BNV) | payer OTHER, SELFPAY | PROVIDERS: Emergency Provider Emergency Medicine; PCP Internal Medicine; Visit Provider Radiology Diagnostic Radiology | DX: S19.9XXA Unspecified injury of neck, initial encounter (principal); S09.90XA Unspecified injury of head, initial encounter | CPT/HCPCS: 70450; 72125 ==

== ENCOUNTER 2024-11-27 09:33 | Outpatient (REF) | payer OTHER, SELFPAY ==
--- OUTSIDE RECORDS SUMMARY | 2024-11-27 10:39 | XMS_ITS | Clinical Summary ---
Author Organization [facility] ity Address [address] [place] [address] Care Team Providers Care Oil Field Equipment Mechanic Supervisor Name Role Phone Amber Young MD Primary Care Provider [phone] Surgical History Surgery Date Site/Laterality Comments BELT ABDOMINOPLASTY 06/2021 PROCEDURE: HISTORICAL TUMMY TUCK; COMMENT: And breast lift OTHER SURGICAL HISTORY 11/2012 PROCEDURE: HISTORY OTHER; COMMENT: ESWL right kidney Dr. Kimball OTHER SURGICAL HISTORY 07/2018 PROCEDURE: HISTORY OTHER; COMMENT: Laparoscopy for BTL OTHER SURGICAL HISTORY 04/28/2022 PROCEDURE: AL ARTHRD ANT INTERBODY MIN DSC LUMBAR; COMMENT: L5-S1 Dr. 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 Cyst of right Bartholin's gland DX:Cyst of right Bartholin's gland Esophageal reflux DX:Esophageal reflux Depressive disorder DX:Depressiv e disorder Nephrolithiasis DX:Nephrolithias is Family History Medical History Relation Name Comments Breast cancer Maternal Grandmother Colon cancer Maternal Grandmother Diabetes Maternal Grandmother Hypertension Maternal Grandmother Lung cancer Neg Hx Relation Name Status Comments Maternal Grandmother Social History Tobacco Use Types Packs/Day Years Used Date Smoking Tobacco: Former Smokeless Tobacco: Never Alcohol Use Standard Drinks/Week Comments No 0 (1 standard drink = 0.6 oz pur e alcohol) Comments Unknown Sex and Gender Information Value Date Recorded Sex Assigned at Not on file Legal Sex Female 5:29 AM EST Gender Identity Not on file Sexual Orientation Not on file Obstetrics History Last Filed Vital Signs Vital Sign Reading Time Taken Comments Blood Pressure - - Pulse - - Temperature - - Respiratory Rate - - Oxygen Saturation - - Inhaled Oxygen Concentration - - Weight 83 kg (183 lb) 06/23/2022 2:40 PM EST Height 160 cm (5' 3 ) 05/13/2022 10:37 AM EDT Body Mass Index 32.42 05/13/2022 10:37 AM EDT Plan of Treatment Health Maintenance Due Date Last Done Comments Hepatitis B Vaccines (1 of 3 - 19+ 3-dose series) 2007 Cervical Cancer Screening: P ap Smear 11/26/2020 11/26/2017 Depression Screening 07/05/2022 HIV Screening 07/05/2022 Hepatitis C Screening 07/05/2022 Social Influencers of Health Screening 07/05/2022 COVID-19 Vaccine (1 - 2023-2 5 season) 2024 Influenza Vaccine (Season Ended) 2025 DTaP,Tdap,and Td Vaccines (2 - Td or Tdap) 11/01/2026 11/01/2016 HIB Vaccines Aged Out No longer eligi ble based on patient's age to complete this topic HPV Vaccines Aged Out No longer eligi ble based on patient's age to complete this topic Hepatitis A Vaccines Aged Out No long er eligible based on patient's age to complete this topic IPV Vaccines Aged Out No longer eligi ble based on patient's age to complete this topic MMR Vaccines Aged Out No longer eligi ble based on patient's age to complete this topic Meningococcal ACWY Vaccine Aged Out N o longer eligible based on patient's age to complete this topic Meningococcal B Vaccine Aged Out No l onger eligible based on patient's age to complete this topic Pneumococcal Vaccine: Pediat rics (0 to 5 Years) and At-Risk Patients (6 to 64 Years) Aged Out No longer eligi ble based on patient's age to complete this topic RSV Immunization Patients Un savanah 20 months Aged Out No longer eligible b ased on patient's age to complete this topic Varicella Vaccines Aged Out No longer eligible based on patient's age to complete this topic Procedures Procedure Name Priority Date/Time Associated Diagnosis Comments PAP SMEAR Routine 11/26/2017 from Last 3 Months or Most Recently Relevant to Health Maintenance Results * Pap smear (11/26/2017) 11/26/2017 Narrative HISTORICAL TESTING LAB RESULTING AGENCY - 11/29/2017 5:00 PM EDT [id number] THINPREP PAP, IMAGED: NEGATIVE FOR SQUAMOUS INTRAEPITHELIAL LESION AND MALIGNANCY ??. JEFFY REZA(ASCP) (CASE ELECTRONICALLY SIGNED 11 29 2017) ADEQUACY: SATISFACTORY. ENDOCERVICAL/TRANSFORMATION ZONE COMPONENT PRESENT. SOURCE: THINPREP PAP HPV IF ASCUS, CERVICAL, IMAGED: CLINICAL INFORMATION: HPV IF DIAGNOSIS OF ASCUS. Z12.4, Z01.419, HORMONES, PAP HX NEGATIVE Tessa MARTINEZ LAB CYTOLOGY ORDERABLES Final R esult HISTORICAL TESTING LAB RESULTING AGENCY from Last 3 Months or Most Recently Relevant to Health Maintenance Care Teams Oil Field Equipment Mechanic Supervisor Relationship Specialty Start Date End Date Amber Young MD [address] [place] [address] PCP - General Internal Medicine 02/12/22
--- OUTSIDE RECORDS SUMMARY | 2024-11-27 10:39 | XMS_ITS | Clinical Summary ---
Author Organization [facility], Address [address] [place] [place] [address] Phone Care Team Providers Care Household Appliance Repairer Name Role Phone Amber Young MD Primary Care Provider Allergies Active Allergy Reactions Criticality Noted Date Comments Aspirin Other (see comments) 03/24/2022 Pt not sure of reaction Citalopram Nausea,Vomiting Medium 03/24/2022 Metronidazole Nausea,Vomiting Medium 03/24/2022 Oxycodone Itching,Nausea Low 03/24/2022 Pt. States currently taking this medication.(04/15/22) Penicillins Other (see comments) 03/24/2022 Pt. Not sure of reaction Sertraline Nausea,Vomiting Medium 03/24/2022 Bupropion 03/24/2022 Medications acetaminophen (TYLENOL) 325 MG tablet Take 650 mg by mouth every 8 (eight) hours if needed for mild pain Active cyclobenzaprine (FLEXERIL) 10 MG tablet Take 10 mg by mouth 3 (three) times a day if needed for muscle spasms Active oxyCODONE (OXY-IR) 5 MG immediate release capsule Take 5 mg by mouth every 4 (four) hours if needed for moderate pain Active trimethoprim (TRIMPEX) 100 MG tablet Take 100 mg by mouth 1 (one) time each day 03/27/2022 Active Active Problems Problem Noted Date Diagnosed Date Lumbar radiculopathy 03/24/2022 Low back pain 03/24/2022 Depressive disorder 03/24/2022 Anxiety 03/24/2022 Social History Tobacco Use Types Packs/Day Years Used Date Smoking Tobacco: Never Assessed Comments Unknown Sex and Gender Information Value Date Recorded Sex Assigned at Not on file Legal Sex Female 12:55 PM EDT Gender Identity Not on file Sexual Orientation Not on file Last Filed Vital Signs Vital Sign Reading Time Taken Comments Blood Pressure 109/72 04/20/2022 2:02 PM EDT Pulse 120 04/20/2022 2:02 PM EDT Temperature 36.3 ??C (97.3 ??F) 04/20/2022 2:02 PM ED T Respiratory Rate - - Oxygen Saturation 98% 04/20/2022 2:02 PM EDT Inhaled Oxygen Concentration - - Weight 80.7 kg (178 lb) 04/20/2022 2:02 PM EDT Height 162.6 cm (5' 4 ) 04/20/2022 2:02 PM EDT Body Mass Index 30.55 04/20/2022 2:02 PM EDT Plan of Treatment Health Maintenance Due Date Last Done Comments Hepatitis B Vaccine (1 of 3 - 19+ 3-dose series) 2007 Influenza Vaccine (Season Ended) 2025 Pneumococcal Vaccine: Peds ( 0 to 5 Years) and At-Risk Patients (6 to 49 Years) Aged Out No longer eligible b ased on patient's age to complete this topic Insurance [facility] [place] [id number] Medicaid [place] Care Teams Household Appliance Repairer Relationship Specialty Start Date End Date Amber Young MD [address] [place] [address] [address], [place] PCP - General Internal Medicine 03/24/22
[2024-11-27 13:14] LABS: MANUAL DIFF FLAG NO
[2024-11-27 13:34] LABS: Basophils Percent Auto 0.5 % (0-2); Eosinophils Absolute Auto 0.1 X10*3/uL (0.0-0.4); Eosinophils Percent Auto 1.4 % (0-4); Hematocrit 37.6 % (37.0-47.0); Hemoglobin 12.3 g/dl (12.0-16.0); Imm Gran Abs Auto 0.04 X10*3/uL (0.00-0.03); Imm Gran Pct Auto 0.5 % (0.0-0.4); Lymphocytes Absolute Auto 2.8 X10*3/uL (1.2-4.9); Lymphocytes Percent Auto 33.4 % (20-40); Mean Corpuscular HGB Conc 32.7 g/dl (31.0-35.0); Mean Corpuscular Hemoglobin 27.7 pg (27.0-33.0); Mean Corpuscular Volume 84.7 fL (80.0-98.0); Mean Platelet Volume 11.5 fL (9.4-12.3); Monocytes Absolute Auto 0.8 X10*3/uL (0.1-1.2); Monocytes Percent Auto 9.4 % (2-11); Neutrophils Absolute Auto 4.7 x10*3/uL (2.0-8.3); Neutrophils Percent Auto 54.8 % (45-73); Platelet Count 281 X10*3/uL (160-400); Red Blood Count 4.44 X10*6/uL (4.20-5.50); Red Cell Distribution Width 14.2 % (11.0-16.0); White Blood Count 8.5 X10*3/uL (4.8-10.8)
[2024-11-27 14:21] LABS: Ferritin 55 ng/mL (10-122); Thyroid Stimulating Hormone 3.08 uIU/mL (0.32-4.0)
[2024-11-27 14:39] LABS: Folate 7.5 ng/mL (> or = 4.0); Vitamin B12 353 pg/mL (200-900)
== END 2024-11-27 09:34 | disposition home or self-care (01) ==
LOC: HO.10HDL 09:33
PROVIDERS: Visit Provider Internal Medicine
DX: Z00.01 Encounter for general adult medical examination with abnormal findings (principal); R53.83 Other fatigue; F51.5 Nightmare disorder; F43.12 Post-traumatic stress disorder, chronic; F32.2 Major depressive disorder, single episode, severe without psychotic features
CPT/HCPCS: 36415; 82607; 82728; 82746; 84443; 85025

== ENCOUNTER 2025-06-15 08:12 | Emergency (ER) | payer MEDICAID, SELFPAY ==
--- NOTE | ~2025-06-15 | XR_ITS ---
EXAMINATION: XR FOREARM, RIGHT CLINICAL INFORMATION: pain with movement x 3 weeks, ttp COMPARISON: None available. TECHNIQUE: AP and lateral views of the right forearm were obtained. FINDINGS: No acute cortical disruption. No lytic or blastic lesions. No metallic or radiopaque foreign body. No subcutaneous emphysema. Suboptimal evaluation of the wrist and elbow joints. XR/XR ankle RT min 3V IMPRESSION: No acute fracture. Negative exam. EXAMINATION: XR HAND, RIGHT CLINICAL INFORMATION: pain with movement x 3 weeks, ttp COMPARISON: None available. TECHNIQUE: PA, lateral, and oblique views of the right hand. FINDINGS: No acute cortical disruption or malalignment. No lytic or blastic lesions. No metallic or radiopaque foreign body. No subcutaneous emphysema. IMPRESSION: No acute fracture or dislocation. No gross foreign body. EXAMINATION: XR ANKLE, RIGHT CLINICAL INFORMATION: pain with movement x 3 weeks, ttp COMPARISON: None available. TECHNIQUE: AP, lateral, and mortise views of the right ankle. FINDINGS: No acute cortical disruption or malalignment. No lytic or blastic lesions. No joint effusion. No subcutaneous emphysema. No metallic or radiopaque foreign body. IMPRESSION: No acute fracture or dislocation. Negative exam. Electronically signed by: Danny Hernandez MD 06/15/2025 09:06 AM KATELYNN
--- NOTE | ~2025-06-15 | XR_ITS ---
EXAMINATION: XR FOREARM, RIGHT CLINICAL INFORMATION: pain with movement x 3 weeks, ttp COMPARISON: None available. TECHNIQUE: AP and lateral views of the right forearm were obtained. FINDINGS: No acute cortical disruption. No lytic or blastic lesions. No metallic or radiopaque foreign body. No subcutaneous emphysema. Suboptimal evaluation of the wrist and elbow joints. XR/XR forearm RT 2V IMPRESSION: No acute fracture. Negative exam. EXAMINATION: XR HAND, RIGHT CLINICAL INFORMATION: pain with movement x 3 weeks, ttp COMPARISON: None available. TECHNIQUE: PA, lateral, and oblique views of the right hand. FINDINGS: No acute cortical disruption or malalignment. No lytic or blastic lesions. No metallic or radiopaque foreign body. No subcutaneous emphysema. IMPRESSION: No acute fracture or dislocation. No gross foreign body. EXAMINATION: XR ANKLE, RIGHT CLINICAL INFORMATION: pain with movement x 3 weeks, ttp COMPARISON: None available. TECHNIQUE: AP, lateral, and mortise views of the right ankle. FINDINGS: No acute cortical disruption or malalignment. No lytic or blastic lesions. No joint effusion. No subcutaneous emphysema. No metallic or radiopaque foreign body. IMPRESSION: No acute fracture or dislocation. Negative exam. Electronically signed by: Danny Hernandez MD 06/15/2025 09:06 AM KATELYNN
--- NOTE | ~2025-06-15 | US_ITS ---
EXAMINATION: US TRIPLEX LOWER EXTREMITY, RIGHT CLINICAL INFORMATION: Calf pain. Recent trauma. COMPARISON: None available. TECHNIQUE: Color-flow triplex imaging with spectral analysis and compression Doppler were performed on the right lower extremity. FINDINGS: Respiratory variation, normal compression and augmented flow are noted throughout the right lower extremity. The visualized common femoral vein, superficial femoral vein, profunda femoral vein, popliteal vein and midcalf peroneal and posterior tibial venous segments show no evidence of deep venous thrombosis. There is no Aragon's cyst. There is a normal-appearing right inguinal lymph node measuring 2.3 x 0.7 x 0.7 cm. US/US venous duplex LE RT IMPRESSION: No evidence of deep venous thrombosis involving the right lower extremity. Electronically signed by: Kaya Ronquillo MD 06/15/2025 09:44 AM KATELYNN
--- NOTE | ~2025-06-15 | XR_ITS ---
EXAMINATION: XR FOREARM, RIGHT CLINICAL INFORMATION: pain with movement x 3 weeks, ttp COMPARISON: None available. TECHNIQUE: AP and lateral views of the right forearm were obtained. FINDINGS: No acute cortical disruption. No lytic or blastic lesions. No metallic or radiopaque foreign body. No subcutaneous emphysema. Suboptimal evaluation of the wrist and elbow joints. XR/XR hand RT min 3V IMPRESSION: No acute fracture. Negative exam. EXAMINATION: XR HAND, RIGHT CLINICAL INFORMATION: pain with movement x 3 weeks, ttp COMPARISON: None available. TECHNIQUE: PA, lateral, and oblique views of the right hand. FINDINGS: No acute cortical disruption or malalignment. No lytic or blastic lesions. No metallic or radiopaque foreign body. No subcutaneous emphysema. IMPRESSION: No acute fracture or dislocation. No gross foreign body. EXAMINATION: XR ANKLE, RIGHT CLINICAL INFORMATION: pain with movement x 3 weeks, ttp COMPARISON: None available. TECHNIQUE: AP, lateral, and mortise views of the right ankle. FINDINGS: No acute cortical disruption or malalignment. No lytic or blastic lesions. No joint effusion. No subcutaneous emphysema. No metallic or radiopaque foreign body. IMPRESSION: No acute fracture or dislocation. Negative exam. Electronically signed by: Danny Hernandez MD 06/15/2025 09:06 AM KATELYNN
[2025-06-15 08:13] VITALS: BP 125/76; PULSE 92; RESP 16; TEMP 36.1; O2SAT 100; BMI 29.2
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
[2025-06-15 08:31] VITALS: BP 114/82; PULSE 99; RESP 16; TEMP 36.8; O2SAT 96
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
--- OUTSIDE RECORDS SUMMARY | 2025-06-15 09:01 | XMS_ITS | Clinical Summary ---
Author Organization [facility] ity Address [address] [place] [address] Care Team Providers Care Clinical Genetics Laboratory Chief Name Role Phone Amber Young MD Primary Care Provider Surgical History Surgery Date Site/Laterality Comments BELT ABDOMINOPLASTY 06/2021 PROCEDURE: HISTORICAL TUMMY TUCK; COMMENT: And breast lift OTHER SURGICAL HISTORY 11/2012 PROCEDURE: HISTORY OTHER; COMMENT: ESWL right kidney Dr. Kimball OTHER SURGICAL HISTORY 07/2018 PROCEDURE: HISTORY OTHER; COMMENT: Laparoscopy for BTL OTHER SURGICAL HISTORY 04/28/2022 PROCEDURE: IA ARTHRD ANT INTERBODY MIN DSC LUMBAR; COMMENT: [...] of 3 - 19+ 3-dose series) 2007 HPV Vaccines (1 - 3-dose SCD M series) 2015 Cervical Cancer Screening: P ap Smear 11/26/2020 11/26/2017 HIV Screening 07/05/2022 Hepatitis C Screening 07/05/2022 Social Influencers of Health Screening 07/05/2022 Depression Screening 08/02/2024 COVID-19 Vaccine (1 - 2024-2 6 season) 2025 Influenza Vaccine (#1) 2025 DTaP,Tdap,and Td Vaccines (2 - Td or Tdap) 11/01/2026 11/01/2016 RSV Immunization Adult Patie nts (1 - 1-dose 75+ series) 2063 HIB Vaccines Aged Out No longer eligi [...] to 49 Years) Aged Out No longer eligi ble [...] RESULTING AGENCY - 11/29/2017 5:00 PM EDT [id number] THINPREP PAP, IMAGED: NEGATIVE FOR SQUAMOUS INTRAEPITHELIAL LESION AND MALIGNANCY . JEFFY REZA(ASCP) (CASE ELECTRONICALLY SIGNED 11 29 2017) ADEQUACY: SATISFACTORY. ENDOCERVICAL/TRANSFORMATION ZONE COMPONENT PRESENT. SOURCE: THINPREP PAP HPV IF ASCUS, CERVICAL, IMAGED: CLINICAL INFORMATION: HPV IF DIAGNOSIS OF ASCUS. Z12.4, Z01.419, HORMONES, PAP HX NEGATIVE Tessa Sanchez [facility] CYTOLOGY ORDERABLES Final R esult HISTORICAL TESTING LAB RESULTING AGENCY from Last 3 Months or Most Recently Relevant to Health Maintenance Care Teams Clinical Genetics Laboratory Chief Relationship Specialty Start Date End Date Amber Young MD [facility] [address] [place], [place] PCP - General Internal Medicine 02/12/22
--- OUTSIDE RECORDS SUMMARY | 2025-06-15 09:01 | XMS_ITS | Clinical Summary ---
Author Organization [facility] Address [address] [facility] [address] [address] [place] [id number] Phone Care Team Providers Care Guitar Maker Name Role Phone Unavailable Primary Care Provider Unavailabl e Social History Tobacco Use Types Packs/Day Years Used Date Smoking Tobacco: Never Assessed Education Answer Date Recorded Are you interested in more education? Not on wil e 11/28/2022 Are you concerned about learning? Not on file 11/28/2022 No 11/28/2022 No 11/28/2022 Digital Access Answer Date Recorded No 12/29/2022 No 12/29/2022 Reliable internet access at home? Not on file 12/29/2022 Device with a working camera? Not on file Comments Unknown Sex and Gender Information Value Date Recorded Sex Assigned at Not on file Legal Sex Female 8:15 AM EDT Gender Identity Not on file Sexual Orientation Not on file Plan of Treatment Not on file Medical Devices Not on file Additional Source Comments The information contained in this document represents components of the legal health record. It is not the complete legal health record.[facility]
--- OUTSIDE RECORDS SUMMARY | 2025-06-15 09:02 | XMS_ITS | Clinical Summary ---
Author Organization [facility], Address [address] [place] [address] Phone Care Team Providers Care Gem Stone Cutter Name Role Phone Amber Young MD Primary [...] 120 04/20/2022 2:02 PM EDT Temperature 36.3 C (97.3 F) 04/20/2022 2:02 PM EDT Respiratory Rate - - Oxygen Saturation 98% [...] - 19+ 3-dose series) 2007 Influenza Vaccine (#1) 2025 Pneumococcal Vaccine: Peds ( 0 to 5 Years) and At-Risk Patients (6 to 49 Years) Aged Out No longer eligible b ased on patient's age to complete [place] [id number] Medicaid [place] Care Teams Gem Stone Cutter Relationship Specialty Start Date End Date Amber Young MD [address] [place] [address] [address] [place], [place] PCP - General Internal Medicine 03/24/22
[2025-06-15 10:12] VITALS: BP 114/82; PULSE 99; RESP 16; TEMP 36.8; O2SAT 96
--- NOTE | 2025-06-15 10:13 | PC.NURSE ---
Imaging was negative for fx Applied shelby wrap to right wrist and right ankle Patient verbalized understanding of discharge instructions Patient discharged
== END 2025-06-15 10:13 | disposition home or self-care (01) ==
PROVIDERS: Emergency Provider Emergency Medicine; PCP Internal Medicine
DX: S93.401A Sprain of unspecified ligament of right ankle, initial encounter (principal); W23.1XXA Caught, crushed, jammed, or pinched between stationary objects, initial encounter; Y93.9 Activity, unspecified; Y92.9 Unspecified place or not applicable; Y99.9 Unspecified external cause status; M25.531 Pain in right wrist
CPT/HCPCS: 73090; 73130; 73610; 93971; 99284

== ENCOUNTER → 2025-06-15 08:31 | Outpatient (BNV) | payer MEDICAID, SELFPAY | PROVIDERS: Emergency Provider Emergency Medicine; PCP Internal Medicine; Visit Provider Radiology Diagnostic Radiology | DX: M79.661 Pain in right lower leg (principal); M25.571 Pain in right ankle and joints of right foot; M79.641 Pain in right hand; M79.631 Pain in right forearm | CPT/HCPCS: 73090; 73110; 73130; 73610; 93971 ==

== ENCOUNTER 2025-07-04 10:11 | Emergency (ER) | payer MEDICAID, SELFPAY ==
[2025-07-04 10:19] VITALS: BP 119/72; PULSE 92; RESP 18; TEMP 36.1; O2SAT 98; BMI 29.1
--- NOTE | 2025-07-04 10:26 | ED_ITS ---
HPI - Extremity Problem General Chief complaint: Extremity Injury, Upper Stated complaint: r wrist pain Time Seen by Provider: 07/04/25 10:25 Source: patient Mode of arrival: ambulatory Limitations: no limitations History of Present Illness ED Provider: Leonard He HPI Narrative: 35 yold female with pmh of kidney stones presents to the ED for right wrist pain for the past two weeks since fall. patient was seen in the Ed which showed normal xrays. Patient denies any new trauma, extremity swelling, redness, stiffness, fever or chills. patient states wrist pain on movement. Patient requesting velcro splint. Related Data Home Medications ?Medication ?Instructions ?Recorded ?Confirmed acetaminophen 325 mg tablet 650 mg PO Q6H PRN Pain 07/2307/02/22 (Tylenol) omeprazole 20 mg capsule,delayed 1 cap PO DAILY@0630 0 03/13/22 07/02/22 release venlafaxine 75 mg capsule,extended 75 mg PO DAILY 08/2307/02/22 release 24 hr Previous Rx's ?Medication ?Instructions ?Recorded cyclobenzaprine 5 mg tablet 5 mg PO TID PRN muscle spa sm #7 08/08/24 tabs lidocaine 5 % topical patch 1 patch topical DAILY PRN muscle 08/08/24 (Lidoderm) spasm #15 ea ondansetron 4 mg disintegrating 4 mg PO Q8H PRN nausea and 08/08/24 tablet vomiting #6 tabs Allergies Allergy/AdvReac Type Severity Reaction Status Date / Time hydrocodone (From VICODIN) Allergy Severe INVOLUNTARY Verified 07/04/25 10:22 SPASMS aspirin Allergy Mild N/V Verified 07/04/25 10:22 Penicillins Allergy Mild HIVES Verified 07/04/25 10:22 citalopram (Celexa) Allergy Unknown Unknown Verified 07/04/25 10:22 penicillin V Allergy Unknown Unknown Verified 07/04/25 10:22 Penicillin Allergy Unknown Unknown Uncoded 06/15/25 08:16 Review of Systems 2 Review of Systems: Right wrist pain Yes all other systems are reviewed and are negative PMFSH Past Medical History Medical History Diabetes Surgical History History of esophagogastroduodenoscopy (EGD) Hx of colonoscopy Hx of lithotripsy H/O abdominoplasty H/O breast augmentation Family History Family History Mother Drug abuse Cirrhosis Hepatitis C Maternal Grandmother Colon cancer, Onset Age: 67 Breast cancer, Onset Age: 26 Social History Social History Household Members: Family Housing: House Alcohol intake: current Alcohol intake frequency: holidays/special occasions only Patient Tobacco Use Status: Former Tobacco user service: No Current occupational status: unemployed Physical Exam 2 Vital Signs: Vital Signs: Last Vital Signs Temp 97.0 F 07/04/25 11:18 Pulse 92 07/04/25 11:18 Resp 18 07/04/25 11:18 BP 119/72 07/04/25 11:18 Pulse Ox 98 07/04/25 11:18 O2 Del Method Room Air 07/04/25 11:18 BMI result Body Mass Index 29.1 Const: Orientation/consciousness: patient oriented x3 HEENT: Head: Yes normal to inspection, Yes No palpable skull fracture present, Yes normocephalic and Yes atraumatic Eyes: General: appearance normal, both eyes and all related structures Neck: Neck: Yes normal visual inspection, Yes full ROM, Yes no lymphadenopathy, Yes no meningeal signs, Yes trachea midline, Yes supple, No anterior neck swelling and No tender Chest: Chest palpation & inspection: normal inspection of the chest and normal palpation of entire chest wall Resp: Effort & Inspection: normal respiratory effort and able to speak in complete sentences Auscultation: clear to auscultation bilaterally Cardio: Jugular venous distension: no JVD Heart sounds: S1 normal heart sound present and S2 normal heart sound present GI: Inspection: Yes normal to inspection Palpation (GI): Soft to palpation, not firm, nontender, no guarding and not rigid : General: Yes no CVA tenderness Back/Spine/Pelvis: Back: no CVA tenderness and No back tenderness Skin: General skin exam: no rashes or lesions noted, elasticity normal and turgor normal Neuro: General: patient oriented x3, gait normal, tone normal, moves all extremities, Normal light touch and pain sensation, no meningeal signs, no focal motor deficits, CN's II-XI intact bilaterally and normal sensation to monofilament Extrem: General: Yes normal to inspection, Yes full ROM and Yes capillary refill normal Hand/finger images: 1. mild tenderness on palpation. negative for swelling, redness, stiffness, erythema, ecchymosis, crepitus, ecchymosis, or deformity. Rest of extremities is normal. motor, neuro, and vascular exam is intact Psych: Appearance: grossly normal, well kempt and not disheveled Medical Decision Making Medical Decision Making MDM Narrative: [age] year female presents to the right wrist pain since fall. Patient denies any new trauma. No need for repeat imaging. Patient requesting Velcro wrist splint. Patient informed she will need to follow up with primary care provider for physical therapy referral and if no improvement may need MRI. Patient states ortho called states she did not to be seen. Not suspecting gout, septic joint, cellulitis, osteomyelitis, arterial occlusion, compartment syndrome, or any other life-threatening etiology Differential Diagnosis Differential Diagnoses: The differential diagnosis associated with the presentation includes (wrist sprain) Admission/Observation Consideration of admission/observation: Escalation of care including admission/observation considered Independent Interpretation I performed an independent interpretation of an: Plain X-Ray Radiology Impression Discussion of test interpretation with radiology: I have reviewed the radiologist's reading. Independent Historian Clinical information obtained from an independent historian. History obtained from or confirmed by: Other (patinet) Prescription Management I considered prescription management with: Pain Medication Discharge Plan Discharge Clinical Impression: Sprain and strain of wrist Patient Disposition: Home, Self-Care Instructions: Sprain (ED), How to Use an Elastic Bandage (ED), Wrist Sprain (ED), Cold Compress or Soak (ED) Additional Instructions: Recommend follow up with primary care provider for physical therapy referral and MRI. Return to the ED immediately for any swelling, redness, bluish black discoloration, ecchymosis, stiffness, fever, chills, or any other concerning symptoms. Continue takin over the counter tylenol. Patient: Jose F Latif MR#: [id number] : 1990 Acct:[id number] Age/Sex: 35 / F ADM Date: 06/15/25 Loc: HO.ED Attending Dr: Ordering Physician: Loreta Jeff PA-C Date of Service: 06/15/25 Procedure(s): XR forearm RT 2V Accession Number(s): [id number] cc: Amber Young MD; Loreta Jeff PA-C~ Reason for Exam: pain with movement x 3 weeks, ttp EXAMINATION: XR FOREARM, RIGHT CLINICAL INFORMATION: pain with movement x 3 weeks, ttp COMPARISON: None available. TECHNIQUE: AP and lateral views of the right forearm were obtained. FINDINGS: No acute cortical disruption. No lytic or blastic lesions. No metallic or radiopaque foreign body. No subcutaneous emphysema. Suboptimal evaluation of the wrist and elbow joints. XR/XR forearm RT 2V IMPRESSION: No acute fracture. Negative exam. EXAMINATION: XR HAND, RIGHT CLINICAL INFORMATION: pain with movement x 3 weeks, ttp COMPARISON: None available. TECHNIQUE: PA, lateral, and oblique views of the right hand. FINDINGS: No acute cortical disruption or malalignment. No lytic or blastic lesions. No metallic or radiopaque foreign body. No subcutaneous emphysema. IMPRESSION: No acute fracture or dislocation. No gross foreign body. EXAMINATION: XR ANKLE, RIGHT CLINICAL INFORMATION: pain with movement x 3 weeks, ttp COMPARISON: None available. TECHNIQUE: AP, lateral, and mortise views of the right ankle. FINDINGS: No acute cortical disruption or malalignment. No lytic or blastic lesions. No joint effusion. No subcutaneous emphysema. No metallic or radiopaque foreign body. IMPRESSION: No acute fracture or dislocation. Negative exam. Electronically signed by: Danny Hernandez MD 06/15/2025 09:06 [facility] Dictated By: Danny Ceballos MD Signed By: <Electronically signed by Danny Bah MD in OV> 06/15/25 0906 Prescriptions: No Action omeprazole 20 mg capsule,delayed release(DR/EC) 1 cap PO DAILY@0630 acetaminophen [Tylenol] 325 mg Tablet 650 mg PO Q6H PRN (Reason: Pain) ondansetron 4 mg tablet,disintegrating 4 mg PO Q8H PRN (Reason: nausea and vomiting) Qty: 6 0RF lidocaine [Lidoderm] 5 % adhesive patch,medicated 1 patch topical DAILY PRN (Reason: muscle spasm) Qty: 15 0RF Rx Instructions: leave on most painful area for up to 12 hrs cyclobenzaprine 5 mg tablet 5 mg PO TID PRN (Reason: muscle spasm) Qty: 7 0RF venlafaxine 75 mg capsule,extended release 24hr 75 mg PO DAILY Referrals: [facility] [Provider Group, Orthopedics] - 2 days Referral Note: Wrist sprain for trauma. We will need physical therapy and possible MRI if no improvement Clinical Impression: Sprain and strain of wrist Amber Young MD [Primary Care Provider, Internal Medicine] - 2 days Referral Note: Wrist sprain. Need physical therapy referral and MRI if no improvement Clinical Impression: Sprain and strain of wrist Interventions: ED Discharge Assessment Last Done: 07/04/25 11:18 Discharge Date/Time: 07/04/25 11:19 Print Language: Citizen Of [place]
[2025-07-04 11:18] VITALS: BP 119/72; PULSE 92; RESP 18; TEMP 36.1; O2SAT 98
--- OUTSIDE RECORDS SUMMARY | 2025-07-04 12:17 | XMS_ITS | Clinical Summary ---
Author Organization [facility] Address [address] [place] [id number] Phone Care Team Providers Care Cement Boat And Barge Loader Name Role Phone Unavailable Primary Care Provider [...] It is not the complete legal health record.[facility]
--- OUTSIDE RECORDS SUMMARY | 2025-07-04 12:17 | XMS_ITS | Clinical Summary ---
Author Organization [facility] Address [address] [place] [address] Care Team Providers Care Pathology Supervisor Name Role Phone Amber Young MD Primary Care Provider [phone] Surgical History Surgery Date Site/Laterality Comments BELT ABDOMINOPLASTY 06/2021 PROCEDURE: HISTORICAL TUMMY TUCK; COMMENT: And breast lift OTHER SURGICAL HISTORY 11/2012 PROCEDURE: HISTORY OTHER; COMMENT: ESWL right kidney Dr. Kimball OTHER SURGICAL HISTORY 07/2018 PROCEDURE: HISTORY OTHER; COMMENT: Laparoscopy for BTL OTHER SURGICAL HISTORY 04/28/2022 PROCEDURE: ID ARTHRD ANT INTERBODY MIN DSC LUMBAR; COMMENT: [...] RESULTING AGENCY - 11/29/2017 5:00 PM EDT [id number] THINPREP PAP, IMAGED: NEGATIVE FOR SQUAMOUS INTRAEPITHELIAL LESION AND MALIGNANCY . JEFFY REZA(ASCP) (CASE ELECTRONICALLY SIGNED 11 29 2017) ADEQUACY: SATISFACTORY. ENDOCERVICAL/TRANSFORMATION ZONE COMPONENT PRESENT. SOURCE: THINPREP PAP HPV IF ASCUS, CERVICAL, IMAGED: CLINICAL INFORMATION: HPV IF DIAGNOSIS OF ASCUS. Z12.4, Z01.419, HORMONES, PAP HX NEGATIVE Tessa Sanchez [facility] LAB CYTOLOGY ORDERABLES Final R esult HISTORICAL TESTING LAB RESULTING AGENCY from Last 3 Months or Most Recently Relevant to Health Maintenance Care Teams Pathology Supervisor Relationship Specialty Start Date End Date Amber Young MD [facility] [address] [place], [place] PCP - General Internal Medicine 02/12/22
== END 2025-07-04 11:19 | disposition home or self-care (01) ==
PROVIDERS: Emergency Provider Emergency Medicine; PCP Internal Medicine
DX: S63.501A Unspecified sprain of right wrist, initial encounter (principal); X58.XXXA Exposure to other specified factors, initial encounter; Y93.9 Activity, unspecified; Y92.9 Unspecified place or not applicable; E11.9 Type 2 diabetes mellitus without complications; Z87.891 Personal history of nicotine dependence
CPT/HCPCS: 99283

== ENCOUNTER 2025-07-30 08:21 | Outpatient (REF) | payer MEDICAID, SELFPAY ==
--- NOTE | ~2025-07-30 | XR_ITS ---
EXAMINATION: XR WRIST NAVICULAR RIGHT HISTORY: M79.641 - Pain in right hand COMPARISON: There are no prior studies available for comparison. FINDINGS: Four views of the right wrist, including a scaphoid view are submitted. Osseous mineralization is normal. There is no fracture or dislocation. The joint spaces are preserved. The soft tissues are unremarkable. XR/XR wrist RT w scaphoid IMPRESSION: Unremarkable examination of the right wrist. Electronically signed by: Manjeet Garsia MD 07/30/2025 01:50 PM EST
--- OUTSIDE RECORDS SUMMARY | 2025-07-30 08:24 | XMS_ITS | Clinical Summary ---
Author Organization [facility], Address [address] [place] [address] Phone Care Team Providers Care Supervisor Name Role Phone Amber Young MD Primary Care Provider [phone] Allergies Active Allergy Reactions Criticality Noted Date [...] age to complete [place] [address] [place] [address] Medicaid [place] Care Teams Supervisor Relationship Specialty Start Date End Date Amber Young MD [address] [place] [address] [address] [place], [place] PCP - General Internal Medicine 03/24/22
--- OUTSIDE RECORDS SUMMARY | 2025-07-30 08:24 | XMS_ITS | Clinical Summary ---
Author Organization [facility] ity Address [address] [place] [address] Care Team Providers Care Automotive Machinist Name Role Phone Amber Young MD Primary Care Provider [phone] Surgical History Surgery Date Site/Laterality Comments BELT ABDOMINOPLASTY 06/2021 PROCEDURE: HISTORICAL TUMMY TUCK; COMMENT: And breast lift OTHER SURGICAL HISTORY 11/2012 PROCEDURE: HISTORY OTHER; COMMENT: ESWL right kidney Dr. Kimball OTHER SURGICAL HISTORY 07/2018 PROCEDURE: HISTORY OTHER; COMMENT: Laparoscopy for BTL OTHER SURGICAL HISTORY 04/28/2022 PROCEDURE: NM ARTHRD ANT INTERBODY MIN DSC LUMBAR; COMMENT: [...] RESULTING AGENCY - 11/29/2017 5:00 PM EDT [id number] THINPREP PAP, IMAGED: NEGATIVE FOR SQUAMOUS INTRAEPITHELIAL [...] Recently Relevant to Health Maintenance Care Teams Automotive Machinist Relationship Specialty Start Date End Date Amber Young MD [facility] [address] [place], [place] PCP - General Internal Medicine 02/12/22
--- OUTSIDE RECORDS SUMMARY | 2025-07-30 08:24 | XMS_ITS | Clinical Summary ---
Author Organization [facility] Address [address] [facility] [address] [place] [address] Phone Care Team Providers Care Copy Center Specialist Name Role Phone Unavailable Primary Care Provider [...] It is not the complete legal health record.[facility]
== END 2025-07-30 08:22 | disposition home or self-care (01) ==
LOC: HO.HOSX 08:21
DX: M79.641 Pain in right hand (principal); R20.0 Anesthesia of skin; R20.2 Paresthesia of skin
CPT/HCPCS: 73110; 99212

== ENCOUNTER 2025-07-30 12:48 | Outpatient (AMB) | payer MEDICAID, SELFPAY ==
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
[2025-07-30 13:12] VITALS: BMI 29.2
== END 2025-07-30 14:31 | disposition home or self-care (01) ==
PROVIDERS: PCP Internal Medicine
DX: R20.0 Anesthesia of skin (principal); R20.2 Paresthesia of skin
CPT/HCPCS: 99203

== ENCOUNTER → 2025-07-30 12:49 | Outpatient (BNV) | payer MEDICAID, SELFPAY | PROVIDERS: Visit Provider Radiology Diagnostic Radiology | DX: M79.641 Pain in right hand (principal) | CPT/HCPCS: 73110 ==